=== PATIENT | male | born 1975 | race Caucasian/White ===

== ENCOUNTER 2017-01-29 10:17 | Emergency (ER) | payer MEDICAID, OTHER ==
[~2017-01-29] VITALS: Ht 175.3 cm; Wt 94.3 kg
[2017-01-29 10:20] VITALS: BP_SYST 127
[2017-01-29] MEDS ORDERED: LIDOCAINE 1% 10 MG/ML, 20 ML MDV INJ ONE (10:45)
[2017-01-29] MEDS ORDERED: BACITRACIN 1 GM OINT TP ONE (11:30)
[2017-01-29 11:43] VITALS: BP_SYST 125
== END 2017-01-29 11:43 | disposition home or self-care (01) ==
LOC: SED 10:17
DX: S51.812A Laceration without foreign body of left forearm, initial encounter (principal); I50.9 Heart failure, unspecified; R03.0 Elevated blood-pressure reading, without diagnosis of hypertension; Z95.0 Presence of cardiac pacemaker; Z88.5 Allergy status to narcotic agent; W22.8XXA Striking against or struck by other objects, initial encounter; Y93.89 Activity, other specified; Y92.89 Other specified places as the place of occurrence of the external cause; Y99.8 Other external cause status
CPT/HCPCS: 12002; 99283; J2001

== ENCOUNTER 2017-11-18 22:28 | Emergency (ER) | payer MEDICAID, OTHER ==
[~2017-11-18] VITALS: Ht 175.3 cm; Wt 102.1 kg
[2017-11-18 22:44] VITALS: BP_SYST 128
--- NOTE | 2017-11-18 22:44 | NUR ---
Pt ambulatory to bed 7 for evaluation
--- NOTE | 2017-11-18 22:50 | NUR ---
Patient to ER via triage for evaluation of shakiness, headache, vomiting, and diarrhea after taking isosorbide today. Patient is awake, alert and oriented in no acute distress, vital signs stable, respirations even and unlabored, skin warm and dry to touch. Patient able to ambulate to bed 7 without difficulty with slow, steady gait. Awaiting evaluation by ER MD, will continue to observe and assess.
--- NOTE | 2017-11-18 23:00 | NUR ---
Lights dimmed for patient comfort.
--- NOTE | 2017-11-18 23:15 | NUR ---
Dr Sweeney at bedside to evaluate patient.
[2017-11-18 23:30] VITALS: BP_SYST 139
[2017-11-18] MEDS ORDERED: DIPHENHYDRAMINE HCL 50 MG CAPSULE PO ONE (23:30)
[2017-11-18] MEDS ORDERED: fentaNYL CITRATE/PF 100 MCG/2 ML AMP IM ONE (23:30)
--- NOTE | 2017-11-18 23:50 | NUR ---
Patient given written and verbal discharge instructions and verbalizes understanding. ER MD discussed with patient the results and treatment provided. Patient in stable condition. ID arm band removed. No RX given. Patient educated on pain management and to follow up with PMD. Pain Scale 2. Opportunity for questions provided and answered. Medication side effect fact sheet provided. Patient left ER in no acute distres. No adverse reaction noted to medication. Patient/family advised not to take isosorbide until seen by MD, patient/family acknowledge understanding.
== END 2017-11-18 23:50 | disposition home or self-care (01) ==
LOC: SED 22:28
DX: T46.3X5A Adverse effect of coronary vasodilators, initial encounter (principal); I11.0 Hypertensive heart disease with heart failure; I50.9 Heart failure, unspecified; Z95.2 Presence of prosthetic heart valve; Z95.0 Presence of cardiac pacemaker; Z88.5 Allergy status to narcotic agent
CPT/HCPCS: 96372; 99284; J3010; Q0163

== ENCOUNTER 2017-12-09 22:37 | Emergency (ER) | payer OTHER ==
[~2017-12-09] VITALS: Ht 175.3 cm; Wt 98.9 kg
[2017-12-09 22:44] VITALS: BP_SYST 136
[2017-12-09] MEDS ORDERED: ONDANSETRON HCL 4 MG/2 ML VIAL IVP ONE (23:15)
[2017-12-09] MEDS ORDERED: KETOROLAC TROMETHAMINE 30 MG VIAL IVP ONE (23:15)
[2017-12-09] MEDS ORDERED: ASPIRIN 325 MG TABLET PO ONE (23:15)
[2017-12-09] MEDS ORDERED: KETOROLAC TROMETHAMINE 30 MG VIAL ONE (23:24)
[2017-12-09 23:26] LABS: BILIRUBIN,URINE NEGATIVE (NEGATIVE); BLOOD, URINE NEGATIVE (NEGATIVE); CLARITY/URINE CLEAR (CLEAR); COLOR,URINE YELLOW (YELLOW); GLUCOSE,URINE NEGATIVE (NEGATIVE); KETONES,URINE NEGATIVE (NEGATIVE); LEUKOCYTE ESTERASE ,URINE NEGATIVE (NEGATIVE); NITRITE, URINE NEGATIVE (NEGATIVE); PROTEIN URINE NEGATIVE (NEGATIVE); UROBILINOGEN,URINE 0.2 (0.2-1.0)
[2017-12-09 23:32] LABS: BASOPHILS % (AUTO) 0.6 % (0.0-2.0); EOSINOPHILS # (AUTO) 0.2 K/uL (0.0-0.4); EOSINOPHILS % (AUTO) 3.5 % (0.0-4.0); HEMATOCRIT 46.7 % (36-54); HEMOGLOBIN 14.9 g/dL (14.0-18.0); LYMPHOCYTES # (AUTO) 1.7 K/uL (1.0-5.5); LYMPHOCYTES % (AUTO) 25.9 % (20.5-51.5); MEAN CORPUSCULAR HEMOGLOBIN 30 pg (27-31); MEAN CORPUSCULAR HGB CONC 32 % (32-36); MEAN CORPUSCULAR VOLUME 94 fL (79.0-98.0); MONOCYTES # (AUTO) 0.9 K/uL (0.0-1.0); MONOCYTES % (AUTO) 12.9 % (1.7-9.3); NEUTROPHILS # (AUTO) 3.8 K/uL (1.8-7.7); NEUTROPHILS % (AUTO) 57.1 % (40.0-70.0); PLATELET COUNT (AUTO) 156 K/uL (130-430); RED BLOOD CELL COUNT(AUTO) 4.97 MIL/uL (4.2-6.2); RED CELL DISTRIBUTION WIDTH 12.2 % (9.0-15.0); WHITE BLOOD COUNT (AUTO) 6.6 K/uL (4.8-10.8)
[2017-12-09 23:50] LABS: CALCIUM 9.8 mg/dL (8.4-11.0); CREATININE 1.19 mg/dL (0.55-1.30); POTASSIUM 4.1 mmol/L (3.5-5.1)
[2017-12-09 23:55] LABS: ALBUMIN 3.3 g/dL (3.4-4.8); TOTAL BILIRUBIN 0.3 mg/dL (0.0-1.0)
[2017-12-10] MEDS ORDERED: MORPHINE 2 MG/ML INJ. SYRINGE IVP ONE (00:30)
[2017-12-10 00:42] VITALS: BP_SYST 131
== END 2017-12-10 00:42 | disposition home or self-care (01) ==
LOC: SED 22:37
DX: R10.32 Left lower quadrant pain (principal); R07.89 Other chest pain; I11.0 Hypertensive heart disease with heart failure; I50.9 Heart failure, unspecified; F17.200 Nicotine dependence, unspecified, uncomplicated; Z95.0 Presence of cardiac pacemaker; Z88.5 Allergy status to narcotic agent
CPT/HCPCS: 36415; 71045; 74176; 80053; 81003; 82550; 84484; 85025; 85610; 93005; 96374; 96375; 99285; J1885; J2270

== ENCOUNTER 2018-02-10 07:10 | Emergency (ER) | payer OTHER ==
[~2018-02-10] VITALS: Ht 175.3 cm; Wt 99.8 kg
[2018-02-10 07:15] VITALS: BP_SYST 135
--- NOTE | 2018-02-10 07:22 | NUR ---
Pt placed in bed 6
--- NOTE | 2018-02-10 07:27 | NUR ---
Patient returns to ED with continuing flank pain. States he was previously disgnosed with renal stones.
--- NOTE | 2018-02-10 07:29 | NUR ---
ER at bedside examining patient.
[2018-02-10] MEDS ORDERED: ONDANSETRON HCL 4 MG/2 ML VIAL IVP ONE (07:30)
[2018-02-10] MEDS ORDERED: KETOROLAC TROMETHAMINE 30 MG VIAL IVP ONE (07:30)
[2018-02-10] MEDS ORDERED: NACL 0.9% 1,000 ML IV ONE (07:30)
--- NOTE | 2018-02-10 07:50 | NUR ---
PATIENT AMBULATED TO CT WITH TECH.
[2018-02-10 07:52] LABS: BASOPHILS # (AUTO) 0.1 K/uL (0.0-0.2); EOSINOPHILS # (AUTO) 0.3 K/uL (0.0-0.4); LYMPHOCYTES # (AUTO) 1.6 K/uL (1.0-5.5); MONOCYTES # (AUTO) 0.6 K/uL (0.0-1.0)
[2018-02-10 07:59] LABS: BASOPHILS % (AUTO) 0.6 % (0.0-2.0); EOSINOPHILS % (AUTO) 2.8 % (0.0-4.0); HEMATOCRIT 46.9 % (36-54); HEMOGLOBIN 15.5 g/dL (14.0-18.0); LYMPHOCYTES % (AUTO) 15.2 % (20.5-51.5); MEAN CORPUSCULAR HEMOGLOBIN 31 pg (27-31); MEAN CORPUSCULAR HGB CONC 33 % (32-36); MEAN CORPUSCULAR VOLUME 93 fL (79.0-98.0); NEUTROPHILS # (AUTO) 8.2 K/uL (1.8-7.7); NEUTROPHILS % (AUTO) 75.4 % (40.0-70.0); PLATELET COUNT (AUTO) 205 K/uL (130-430); RED BLOOD CELL COUNT(AUTO) 5.03 MIL/uL (4.2-6.2); RED CELL DISTRIBUTION WIDTH 12.9 % (9.0-15.0); WHITE BLOOD COUNT (AUTO) 10.8 K/uL (4.8-10.8)
[2018-02-10 08:01] LABS: CALCIUM 10.5 mg/dL (8.4-11.0); CREATININE 1.39 mg/dL (0.55-1.30); POTASSIUM 4.5 mmol/L (3.5-5.1)
[2018-02-10 08:05] LABS: TOTAL BILIRUBIN 0.4 mg/dL (0.0-1.0)
--- NOTE | 2018-02-10 08:05 | NUR ---
PATIENT RETURNED FROM CT
[2018-02-10 08:06] LABS: ALBUMIN 3.4 g/dL (3.4-4.8)
[2018-02-10 08:35] LABS: BILIRUBIN,URINE NEGATIVE (NEGATIVE); BLOOD, URINE 3+ (NEGATIVE); CLARITY/URINE CLEAR (CLEAR); COLOR,URINE YELLOW (YELLOW); GLUCOSE,URINE NEGATIVE (NEGATIVE); KETONES,URINE NEGATIVE (NEGATIVE); LEUKOCYTE ESTERASE ,URINE NEGATIVE (NEGATIVE); NITRITE, URINE NEGATIVE (NEGATIVE); PROTEIN URINE NEGATIVE (NEGATIVE); UROBILINOGEN,URINE 0.2 (0.2-1.0)
[2018-02-10 08:51] LABS: BACTERIA,URINE FEW /HPF (None Seen); MUCUS,URINE 1+ /LPF (None Seen); RBC,URINE 50-80 /HPF (0-3); WBC,URINE 0-3 /HPF (0-3)
[2018-02-10] MEDS ORDERED: MORPHINE 2 MG/ML INJ. SYRINGE IVP ONE (09:15)
--- NOTE | 2018-02-10 10:25 | NUR ---
patient stable, denies pain at this time. is stating he wants to go home AMA. convinced patient it is safest to remain hospitalized with [facility] until kidney function returns to normal.
[2018-02-10] MEDS ORDERED: cefTRIAXone 1 GM in D5W 50 ML IV ONE (10:30)
--- NOTE | 2018-02-10 11:00 | NUR ---
patient pending tsfr to [facility] following ct and lab results.
[2018-02-10] MEDS ORDERED: cefTRIAXone 1 GM VIAL IM ONE (11:30)
[2018-02-10] MEDS ORDERED: LIDOCAINE 1%, 20 ML MDV 20 ML ONE (11:33)
--- NOTE | 2018-02-10 12:08 | NUR ---
report called to CORY العراقي RN at [facility]. notified of ETA of 1300.
[2018-02-10 12:25] VITALS: BP_SYST 128
--- NOTE | 2018-02-10 12:26 | NUR ---
Patient transferred to [facility] ED. Is being transferred due to insurance request. Receiving facility has accepting physician, koker, and available space. ER physician Dr Real has signed transfer form. Patient or responsible green party has agreed to transfer and signed form. Patient belongings inventoried and sent with patient. Copy of nursing notes, lab reports, EKG, Physicians Orders and X-rays to be sent with patient. Report called to LIYA Bright at receiving facility. Receiving physician is Dr Han. [facility] ambulance service for transfer. Patient has departed ED with ambulance.
== END 2018-02-10 12:26 | disposition short-term general hospital (02) ==
LOC: SED 07:10
DX: N20.0 Calculus of kidney (principal); N12 Tubulo-interstitial nephritis, not specified as acute or chronic; I11.0 Hypertensive heart disease with heart failure; I50.9 Heart failure, unspecified; Z95.0 Presence of cardiac pacemaker; Z88.5 Allergy status to narcotic agent
CPT/HCPCS: 36415; 74176; 80053; 81000; 85025; 96361; 96372; 96374; 96375; 99285; J0696; J1885; J2001; J2270; J2405; J7030

== ENCOUNTER 2019-02-16 08:00 | Emergency (ER) | payer OTHER ==
[~2019-02-16] VITALS: Ht 175.3 cm; Wt 99.8 kg
[2019-02-16 08:00] VITALS: BP_SYST 117
--- NOTE | 2019-02-16 08:00 | NUR ---
BROUGHT BACK TO BED #6 AND TRIAGED, REPORT GIVEN TO ASHLEY
--- NOTE | 2019-02-16 08:05 | NUR ---
Patient presented to ER C/O cough, runny nose, headache. Patient A&Ox4, afebrile, ambulatory to ER, nasal congestion, skin pink and warm, pain 3/10, denies N/V/D. Patient states he has heasdache, runny nose and cough x7 days, last night he had SOB and unable to sleep. Patient states he has HX CHF & pacemaker implant.
--- NOTE | 2019-02-16 08:21 | NUR ---
Radiology at bedside for portable x-ray.
[2019-02-16] MEDS ORDERED: cefTRIAXone 1 GM VIAL IM ONE (08:30)
[2019-02-16 08:57] VITALS: BP_SYST 117
--- NOTE | 2019-02-16 08:57 | NUR ---
Patient given written and verbal discharge instructions and verbalizes understanding. ER MD discussed with patient the results and treatment provided. Patient in stable condition. ID arm band removed. Rx of Prometh & Augmentin given. Patient educated on pain management and to follow up with PMD. Pain Scale 2/10 tolerable for patient. Opportunity for questions provided and answered.
== END 2019-02-16 08:57 | disposition home or self-care (01) ==
LOC: SED 08:00
DX: J20.9 Acute bronchitis, unspecified (principal); I11.0 Hypertensive heart disease with heart failure; Z95.0 Presence of cardiac pacemaker; Z88.5 Allergy status to narcotic agent
CPT/HCPCS: 71045; 96372; 99283; J0696

== ENCOUNTER 2019-06-22 03:12 | Emergency (ER) | payer MEDICAID, OTHER ==
[~2019-06-22] VITALS: Ht 175.3 cm; Wt 99.8 kg
[2019-06-22 03:20] VITALS: BP_SYST 119
[2019-06-22] MEDS ORDERED: ONDANSETRON HCL 4 MG/2 ML VIAL IM ONE (04:30)
[2019-06-22] MEDS ORDERED: MORPHINE 4 MG/ML INJ. SYRINGE IM ONE (04:30)
[2019-06-22] MEDS ORDERED: ceFAZolin SODIUM 1 GM in D5W 50 ML IV ONE (05:00)
[2019-06-22 05:38] LABS: BASOPHILS # (AUTO) 0.1 K/uL (0.0-0.2); BASOPHILS % (AUTO) 0.8 % (0.0-2.0); EOSINOPHILS # (AUTO) 0.2 K/uL (0.0-0.4); EOSINOPHILS % (AUTO) 1.8 % (0.0-4.0); HEMOGLOBIN 14.2 g/dL (14.0-18.0); LYMPHOCYTES # (AUTO) 1.4 K/uL (1.0-5.5); LYMPHOCYTES % (AUTO) 16.9 % (20.5-51.5); MEAN CORPUSCULAR HEMOGLOBIN 31 pg (27-31); MEAN CORPUSCULAR HGB CONC 33 % (32-36); MEAN CORPUSCULAR VOLUME 94 fL (79.0-98.0); MONOCYTES # (AUTO) 0.7 K/uL (0.0-1.0); MONOCYTES % (AUTO) 8.2 % (1.7-9.3); NEUTROPHILS # (AUTO) 6.2 K/uL (1.8-7.7); NEUTROPHILS % (AUTO) 72.3 % (40.0-70.0); PLATELET COUNT (AUTO) 170 K/uL (130-430); RED BLOOD CELL COUNT(AUTO) 4.56 MIL/uL (4.2-6.2); WHITE BLOOD COUNT (AUTO) 8.5 K/uL (4.8-10.8)
[2019-06-22] MEDS ORDERED: ceFAZolin SODIUM 1 GM VIAL ONE (05:48)
[2019-06-22 05:51] LABS: CALCIUM 10.4 mg/dL (8.4-11.0); CREATININE 1.25 mg/dL (0.55-1.30); POTASSIUM 3.7 mmol/L (3.5-5.1)
[2019-06-22 06:02] LABS: TOTAL BILIRUBIN 0.4 mg/dL (0.0-1.0)
[2019-06-22 07:37] VITALS: BP_SYST 139
== END 2019-06-22 07:37 | disposition home or self-care (01) ==
LOC: SED 03:12
DX: R68.84 Jaw pain (principal); M25.572 Pain in left ankle and joints of left foot; I11.0 Hypertensive heart disease with heart failure; I50.9 Heart failure, unspecified; Z88.5 Allergy status to narcotic agent
CPT/HCPCS: 36415; 70486; 73610; 73630; 80053; 83605; 85025; 86886; 86900; 86901; 87040; 96365; 96372; 99285; J0690; J2270; J2405

== ENCOUNTER 2019-07-26 05:52 | Emergency (ER) | payer MEDICAID, OTHER ==
[~2019-07-26] VITALS: Ht 175.3 cm; Wt 90.7 kg
--- NOTE | 2019-07-26 05:57 | NUR ---
Patient to ER bed 8 to gown for evaluation. Side rails up. Report given to Papi NICKERSON.
[2019-07-26 06:00] VITALS: BP_SYST 132
--- NOTE | 2019-07-26 06:05 | NUR ---
ER at bedside examining patient.
[2019-07-26] MEDS ORDERED: MORPHINE 4 MG/ML INJ. SYRINGE IVP ONE ×2 (06:15→08:45)
[2019-07-26] MEDS ORDERED: ONDANSETRON HCL 4 MG/2 ML VIAL IVP ONE ×2 (06:15→08:45)
[2019-07-26] MEDS ORDERED: NACL 0.9% 1,000 ML IV ONE (06:15)
[2019-07-26 06:28] LABS: BASOPHILS # (AUTO) 0.1 K/uL (0.0-0.2); BASOPHILS % (AUTO) 0.3 % (0.0-2.0); HEMATOCRIT 40.5 % (36-54); HEMOGLOBIN 13.4 g/dL (14.0-18.0); LYMPHOCYTES # (AUTO) 1.2 K/uL (1.0-5.5); LYMPHOCYTES % (AUTO) 6.3 % (20.5-51.5); MEAN CORPUSCULAR HEMOGLOBIN 31 pg (27-31); MEAN CORPUSCULAR HGB CONC 33 % (32-36); MEAN CORPUSCULAR VOLUME 93 fL (79.0-98.0); MONOCYTES # (AUTO) 1.4 K/uL (0.0-1.0); MONOCYTES % (AUTO) 7.3 % (1.7-9.3); NEUTROPHILS # (AUTO) 16.4 K/uL (1.8-7.7); NEUTROPHILS % (AUTO) 86.1 % (40.0-70.0); PLATELET COUNT (AUTO) 203 K/uL (130-430); RED BLOOD CELL COUNT(AUTO) 4.36 MIL/uL (4.2-6.2); RED CELL DISTRIBUTION WIDTH 13.2 % (9.0-15.0); WHITE BLOOD COUNT (AUTO) 19.1 K/uL (4.8-10.8)
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
[2019-07-26 06:36] LABS: CALCIUM 10.5 mg/dL (8.4-11.0); CREATININE 1.32 mg/dL (0.55-1.30); POTASSIUM 3.5 mmol/L (3.5-5.1)
[2019-07-26 06:47] LABS: ALBUMIN 3.2 g/dL (3.4-4.8); TOTAL BILIRUBIN 0.8 mg/dL (0.0-1.0)
[2019-07-26] MEDS ORDERED: IOHEXOL 100 ML IV ONE (07:09)
--- NOTE | 2019-07-26 07:58 | NUR ---
Spoke with pt Cris who left contact number for updates on status ([phone])
--- NOTE | 2019-07-26 10:17 | NUR ---
Report given to Jose at [facility] pickup ETA [id number]
--- NOTE | 2019-07-26 12:25 | NUR ---
Patient to be transferred to [facility]. Is being transferred due to higher level of care. Receiving facility has accepting physician and available space. ER physician has signed transfer form. Patient or responsible constitution party has agreed to transfer and signed form. Patient belongings inventoried and will be sent with patient. Copy of nursing notes, lab reports, EKG, Physicians Orders and X-rays to be sent with patient. Report called to Jose at receiving facility. Receiving physician is Dr Tee. [place] ambulance service has been called for transfer.
[2019-07-26 12:27] VITALS: BP_SYST 158
== END 2019-07-26 12:27 | disposition short-term general hospital (02) ==
LOC: SED 05:52
DX: K85.80 Other acute pancreatitis without necrosis or infection (principal); R10.32 Left lower quadrant pain; R11.10 Vomiting, unspecified; I42.9 Cardiomyopathy, unspecified; I11.0 Hypertensive heart disease with heart failure; I50.9 Heart failure, unspecified; Z95.0 Presence of cardiac pacemaker; Z88.5 Allergy status to narcotic agent
CPT/HCPCS: 36415; 74177; 80053; 83690; 85025; 96361; 96374; 96375; 96376; 99285; J2270; J2405; J7030; Q9967

== ENCOUNTER 2019-10-29 01:45 | Inpatient (IN) | payer OTHER ==
[~2019-10-29] VITALS: Ht 175.3 cm; Wt 99.8 kg
[2019-10-29 01:55] VITALS: BP_SYST 142
[2019-10-29] MEDS ORDERED: NACL 0.9% 1,000 ML IV ONE (02:12)
[2019-10-29 02:28] LABS: BILIRUBIN,URINE NEGATIVE (NEGATIVE); BLOOD, URINE NEGATIVE (NEGATIVE); CLARITY/URINE CLEAR (CLEAR); COLOR,URINE YELLOW (YELLOW); GLUCOSE,URINE NEGATIVE (NEGATIVE); KETONES,URINE NEGATIVE (NEGATIVE); LEUKOCYTE ESTERASE ,URINE NEGATIVE (NEGATIVE); NITRITE, URINE NEGATIVE (NEGATIVE); PROTEIN URINE NEGATIVE (NEGATIVE); UROBILINOGEN,URINE 0.2 (0.2-1.0)
[2019-10-29] MEDS ORDERED: ONDANSETRON HCL 4 MG/2 ML VIAL IVP ONE (02:30)
[2019-10-29] MEDS ORDERED: MORPHINE 4 MG/ML INJ. SYRINGE IVP ONE (02:30)
[2019-10-29 03:03] LABS: BASOPHILS # (AUTO) 0.1 K/uL (0.0-0.2); EOSINOPHILS # (AUTO) 0.2 K/uL (0.0-0.4); EOSINOPHILS % (AUTO) 2.9 % (0.0-4.0); HEMATOCRIT 43.3 % (36-54); HEMOGLOBIN 14.4 g/dL (14.0-18.0); LYMPHOCYTES # (AUTO) 2.1 K/uL (1.0-5.5); LYMPHOCYTES % (AUTO) 29.8 % (20.5-51.5); MEAN CORPUSCULAR HEMOGLOBIN 32 pg (27-31); MEAN CORPUSCULAR HGB CONC 33 % (32-36); MEAN CORPUSCULAR VOLUME 95 fL (79.0-98.0); MONOCYTES # (AUTO) 0.7 K/uL (0.0-1.0); MONOCYTES % (AUTO) 10.1 % (1.7-9.3); NEUTROPHILS % (AUTO) 56.2 % (40.0-70.0); PLATELET COUNT (AUTO) 158 K/uL (130-430); RED BLOOD CELL COUNT(AUTO) 4.55 MIL/uL (4.2-6.2); RED CELL DISTRIBUTION WIDTH 14.2 % (9.0-15.0); WHITE BLOOD COUNT (AUTO) 7.2 K/uL (4.8-10.8)
[2019-10-29 03:13] LABS: CALCIUM 11.1 mg/dL (8.4-11.0); CREATININE 1.47 mg/dL (0.55-1.30); POTASSIUM 3.8 mmol/L (3.5-5.1)
[2019-10-29 03:18] LABS: ALBUMIN 3.3 g/dL (3.4-4.8); TOTAL BILIRUBIN 0.5 mg/dL (0.0-1.0)
[2019-10-29] MEDS ORDERED: fentaNYL CITRATE/PF 100 MCG/2 ML AMP IVP ONE (03:45)
[2019-10-29] MEDS ORDERED: LORazepam 2 MG/ML VIAL IVP ONE (05:30)
[2019-10-29] MEDS ORDERED: KETAMINE 30 MG/3 ML SYRINGE IVP ONE (05:30)
[2019-10-29] MEDS ORDERED: D5NS 1,000 ML IV SCH (05:52)
[2019-10-29] MEDS ORDERED: MORPHINE 2 MG/ML INJ. SYRINGE IVP PRN (06:00)
[2019-10-29 06:50] VITALS: BP_SYST 137
[2019-10-29] MEDS ORDERED: POTASSIUM CHLORIDE 20 MEQ TAB.PRT.SR PO PRN (07:15)
[2019-10-29] MEDS ORDERED: ONDANSETRON HCL 4 MG/2 ML VIAL IVP PRN (07:15)
[2019-10-29] MEDS ORDERED: KETOROLAC TROMETHAMINE 15 MG VIAL IVP PRN (07:15)
[2019-10-29] MEDS ORDERED: MUPIROCIN 2% TOPICAL OINTMENT 22 GM NS PRN (07:15)
[2019-10-29] MEDS ORDERED: DOCUSATE SODIUM 100 MG CAPSULE PO PRN (07:15)
[2019-10-29] MEDS ORDERED: LORazepam 2 MG/ML VIAL IVP PRN (07:15)
[2019-10-29] MEDS ORDERED: ZOLPIDEM TARTRATE 5 MG TABLET PO PRN (07:15)
[2019-10-29] MEDS ORDERED: ACETAMINOPHEN 325 MG TABLET PO PRN (07:15)
[2019-10-29] MEDS ORDERED: MAGNESIUM SULFATE 50 ML IV PRN (07:15)
[2019-10-29] MEDS: MORPHINE 2 MG/ML INJ. SYRINGE IVP PRN ×2 (08:07→12:08)
[2019-10-29 08:14] VITALS: BP_SYST 138
[2019-10-29] MEDS ORDERED: FUROSEMIDE 20 MG TABLET PO SCH (09:00)
[2019-10-29] MEDS ORDERED: MORPHINE 2 MG/ML INJ. SYRINGE IVP ONE ×2 (09:45)
[2019-10-29 09:50] LABS: BARBITURATE, URINE NEGATIVE (NEG <=200); BENZODIAZEPINE, URINE NEGATIVE (NEG <=150); CANNABINOID, URINE NEGATIVE (NEG <=50); COCAINE, URINE NEGATIVE (NEG <=150); METHAMPHETAMINES SCREEN,URINE NEGATIVE (NEG <=500); OPIATE, URINE NEGATIVE (NEG <=100); PHENCYCLIDINE SCREEN,URINE NEGATIVE (NEG <=25); UR TRICYCLIC ANTIDEPRESSANTS NEGATIVE (NEG <=300); URINE AMPHETAMINE NEGATIVE (NEG <=500); URINE METHADONE NEGATIVE (NEG <=200); URINE OXYCODONE SCREEN NEGATIVE (NEG <=100); URINE PROPOXYPHENE SCREEN NEGATIVE (NEG <=300)
[2019-10-29 10:52] VITALS: BP_SYST 138
[2019-10-29 12:00] VITALS: BP_SYST 125
== END 2019-10-29 13:50 | disposition left against medical advice (07) | DRG 282 ==
LOC: SED 01:45 → SMU 05:52
PROVIDERS: ADMIT General Practice; ATTEND General Practice
DX: K85.20 Alcohol induced acute pancreatitis without necrosis or infection (principal); N17.0 Acute kidney failure with tubular necrosis; I50.9 Heart failure, unspecified; I42.9 Cardiomyopathy, unspecified; F15.10 Other stimulant abuse, uncomplicated; R74.0 Nonspecific elevation of levels of transaminase and lactic acid dehydrogenase [LDH]; I11.0 Hypertensive heart disease with heart failure; Z53.29 Procedure and treatment not carried out because of patient's decision for other reasons; Z88.5 Allergy status to narcotic agent; Z95.0 Presence of cardiac pacemaker
CPT/HCPCS: 36415; 76700-TC; 80053; 80307; 81003; 83036; 83690-TC; 85025; 93005; 96361; 96374; 96375; 99285; G0482; J2060; J2270; J2405; J3010; J7030; J7042

== ENCOUNTER 2020-01-23 07:44 | Emergency (ER) | payer OTHER, SELFPAY ==
[~2020-01-23] VITALS: Ht 175.3 cm; Wt 102.1 kg
[2020-01-23 07:44] VITALS: BP_SYST 110
--- NOTE | 2020-01-23 07:44 | NUR ---
BROUGHT BACK TO BED #7 AND TRIAGED, REPORT GIVEN TO GURJIT
--- NOTE | 2020-01-23 07:45 | NUR ---
DR SHRESTHA IN TO ASSESS
[2020-01-23] MEDS ORDERED: ONDANSETRON HCL 4 MG/2 ML VIAL IVP ONE (08:00)
[2020-01-23] MEDS ORDERED: FUROSEMIDE 40 MG/4 ML VIAL IVP ONE (08:00)
--- NOTE | 2020-01-23 08:00 | NUR ---
SEVERAL EPISODES OF EMESIS. ALERT, CALM, RESP UNLABORED, SKIN WARM AND DRY. NO DISTRESS, C/O COUGH AND REQUESTING CXR
--- NOTE | 2020-01-23 08:21 | NUR ---
LABS AND CXR COMPLETED, CALM, ALERT, RESP UNLABORED
[2020-01-23] MEDS ORDERED: MORPHINE 2 MG/ML INJ. SYRINGE IVP ONE (08:30)
[2020-01-23 08:36] LABS: BASOPHILS # (AUTO) 0.1 K/uL (0.0-0.2); EOSINOPHILS # (AUTO) 0.4 K/uL (0.0-0.4); EOSINOPHILS % (AUTO) 4.7 % (0.0-4.0); HEMATOCRIT 47.6 % (36-54); LYMPHOCYTES # (AUTO) 1.7 K/uL (1.0-5.5); LYMPHOCYTES % (AUTO) 20.2 % (20.5-51.5); MEAN CORPUSCULAR HEMOGLOBIN 32 pg (27-31); MEAN CORPUSCULAR HGB CONC 34 % (32-36); MEAN CORPUSCULAR VOLUME 96 fL (79.0-98.0); MONOCYTES # (AUTO) 0.7 K/uL (0.0-1.0); MONOCYTES % (AUTO) 8.9 % (1.7-9.3); NEUTROPHILS # (AUTO) 5.4 K/uL (1.8-7.7); NEUTROPHILS % (AUTO) 65.2 % (40.0-70.0); PLATELET COUNT (AUTO) 167 K/uL (130-430); RED BLOOD CELL COUNT(AUTO) 4.95 MIL/uL (4.2-6.2); RED CELL DISTRIBUTION WIDTH 14.3 % (9.0-15.0); WHITE BLOOD COUNT (AUTO) 8.3 K/uL (4.8-10.8)
[2020-01-23 08:56] LABS: PROTHROMBIN TIME 10.5 SECS (9.5-12.5)
[2020-01-23 09:04] LABS: FIBRINOGEN 308 mg/dL (200-400)
[2020-01-23 09:06] LABS: ANION GAP 6 (5-15); CALCIUM 10.8 mg/dL (8.4-11.0); CHLORIDE 103 mmol/L (98-107); CREATININE 1.22 mg/dL (0.55-1.30); GLUCOSE 120 mg/dL (70-99); POTASSIUM 4.8 mmol/L (3.5-5.1); SODIUM SERUM 137 mmol/L (136-145); UREA NITROGEN, BLOOD 20 mg/dL (8-21)
[2020-01-23 09:07] LABS: GFR AFRICAN AMERICAN 83 mL/min (>90)
[2020-01-23 09:10] LABS: ALANINE AMINOTRANSFERASE 137 U/L (12-78); ALBUMIN 3.7 g/dL (3.4-4.8); ASPARTATE AMINOTRANSFERASE 66 U/L (10-37); LACTATE DEHYDROGENASE 166 U/L (85-227); TOTAL BILIRUBIN 0.7 mg/dL (0.0-1.0)
[2020-01-23 09:23] LABS: C-REACTIVE PROTEIN QUANT < 0.2 mg/dL (0-0.5)
[2020-01-23] MEDS ORDERED: PROMETHAZINE-DM 6.25 MG-15 MG/5 ML UDC PO ONE (10:00)
--- NOTE | 2020-01-23 10:04 | NUR ---
ALERT, CALM, RESP UNLABORED, SKIN WARM AND DRY. DENIES CP/SOB
[2020-01-23 10:17] VITALS: BP_SYST 124
--- NOTE | 2020-01-23 10:26 | NUR ---
Patient given written and verbal discharge instructions and verbalizes understanding. ER MD discussed with patient the results and treatment provided. Patient in stable condition. ID arm band removed. IV catheter removed intact and dressing applied, no active bleeding. Rx of PHENERGAN given. Patient educated on pain management and to follow up with PMD. Pain Scale 0/10 Opportunity for questions provided and answered. Medication side effect fact sheet provided.
[2020-01-23 10:55] LABS: BILIRUBIN,URINE NEGATIVE (NEGATIVE); BLOOD, URINE NEGATIVE (NEGATIVE); CLARITY/URINE CLEAR (CLEAR); COLOR,URINE YELLOW (YELLOW); GLUCOSE,URINE NEGATIVE (NEGATIVE); KETONES,URINE NEGATIVE (NEGATIVE); LEUKOCYTE ESTERASE ,URINE NEGATIVE (NEGATIVE); NITRITE, URINE NEGATIVE (NEGATIVE); PH,URINE 6.5 (5.0-8.0); PROTEIN URINE NEGATIVE (NEGATIVE); UROBILINOGEN,URINE 0.2 (0.2-1.0)
== END 2020-01-23 10:26 | disposition home or self-care (01) ==
LOC: SED 07:44
DX: J20.9 Acute bronchitis, unspecified (principal); R11.10 Vomiting, unspecified; I11.0 Hypertensive heart disease with heart failure; I50.9 Heart failure, unspecified; Z95.0 Presence of cardiac pacemaker; Z88.5 Allergy status to narcotic agent; Z20.828 Contact with and (suspected) exposure to other viral communicable diseases
CPT/HCPCS: 36415; 71045; 80053; 81003; 82550; 82728; 83605; 83615; 83880; 84484; 85025; 85379; 85384; 85610; 85730; 86140; 87040; 87086; 87426; 93005; 96374; 96375; 99285; J1940; J2270; J2405

== ENCOUNTER 2020-02-18 22:02 | Emergency (ER) | payer OTHER, SELFPAY ==
[~2020-02-18] VITALS: Ht 175.3 cm; Wt 102.1 kg
[2020-02-18 22:14] VITALS: BP_SYST 101
--- NOTE | 2020-02-18 23:50 | NUR ---
Patient to ER bed HALLWAY 2 to [facility] for evaluation. Side rails up. Report given to KAMALA.
--- NOTE | 2020-02-18 23:52 | NUR ---
PT AAO AND AMBULATORY C/O ABDOMINAL PAIN THAT IS BURNING FOR THE PAST 24 HOURS. PT REPORTS WORSENING PAIN AND 10/10 LEVEL OF DISCOMFORT. PT HAS HISTORY OF PANCREATITIS AND HE REPORTS THAT IT FEELS LIKE A FLARE UP.
--- NOTE | 2020-02-18 23:55 | NUR ---
BLOOD DRAWN PER LAB
--- NOTE | 2020-02-18 23:55 | NUR ---
ER Dr. SIMMS at bedside examining patient.
[2020-02-19] MEDS ORDERED: MORPHINE 4 MG/ML INJ. SYRINGE IVP ONE ×2 (00:15→01:30)
[2020-02-19] MEDS ORDERED: MORPHINE 4 MG/ML INJ. SYRINGE ONE (00:17)
[2020-02-19 00:30] LABS: BASOPHILS # (AUTO) 0.1 K/uL (0.0-0.2); BASOPHILS % (AUTO) 0.7 % (0.0-2.0); EOSINOPHILS # (AUTO) 0.4 K/uL (0.0-0.4); EOSINOPHILS % (AUTO) 5.6 % (0.0-4.0); HEMOGLOBIN 14.3 g/dL (14.0-18.0); LYMPHOCYTES # (AUTO) 2.4 K/uL (1.0-5.5); LYMPHOCYTES % (AUTO) 32.2 % (20.5-51.5); MEAN CORPUSCULAR HEMOGLOBIN 32 pg (27-31); MEAN CORPUSCULAR HGB CONC 33 % (32-36); MEAN CORPUSCULAR VOLUME 96 fL (79.0-98.0); MONOCYTES # (AUTO) 0.9 K/uL (0.0-1.0); MONOCYTES % (AUTO) 12.1 % (1.7-9.3); NEUTROPHILS # (AUTO) 3.7 K/uL (1.8-7.7); NEUTROPHILS % (AUTO) 49.4 % (40.0-70.0); PLATELET COUNT (AUTO) 170 K/uL (130-430); RED BLOOD CELL COUNT(AUTO) 4.48 MIL/uL (4.2-6.2); RED CELL DISTRIBUTION WIDTH 13.6 % (9.0-15.0); WHITE BLOOD COUNT (AUTO) 7.5 K/uL (4.8-10.8)
[2020-02-19 00:50] LABS: CALCIUM 10.2 mg/dL (8.4-11.0); CREATININE 1.31 mg/dL (0.55-1.30); POTASSIUM 3.9 mmol/L (3.5-5.1)
[2020-02-19 01:02] LABS: ALBUMIN 3.5 g/dL (3.4-4.8); TOTAL BILIRUBIN 0.6 mg/dL (0.0-1.0)
--- NOTE | 2020-02-19 01:40 | NUR ---
Patient given written and verbal discharge instructions and verbalizes understanding. DR. DEMI RAY MD discussed with patient the results and treatment provided. Patient in stable condition. ID arm band removed. IV catheter removed intact and dressing applied, no active bleeding. Patient educated on pain management and to follow up with PMD. Pain Scale 2/10. Opportunity for questions provided and answered.
[2020-02-19 01:41] VITALS: BP_SYST 101
== END 2020-02-19 01:40 | disposition home or self-care (01) ==
LOC: SED 22:02
DX: R10.13 Epigastric pain (principal); I11.0 Hypertensive heart disease with heart failure; I50.9 Heart failure, unspecified; Z88.0 Allergy status to penicillin; Z95.0 Presence of cardiac pacemaker
CPT/HCPCS: 36415; 80053; 81002; 83690; 85025; 93005; 96374; 96375; 99284; J2270

== ENCOUNTER 2020-03-24 19:23 | Inpatient (IN) | payer OTHER, SELFPAY ==
[~2020-03-24] VITALS: Ht 175.3 cm; Wt 106.2 kg
[2020-03-24 19:23] VITALS: BP_SYST 149
[2020-03-24] MEDS ORDERED: ASPIRIN 81 MG TAB.CHEW PO ONE (19:45)
[2020-03-24 20:10] LABS: BASOPHILS % (AUTO) 0.1 % (0.0-2.0); EOSINOPHILS # (AUTO) 0.1 K/uL (0.0-0.4); EOSINOPHILS % (AUTO) 1.3 % (0.0-4.0); HEMATOCRIT 43.3 % (36-54); HEMOGLOBIN 14.7 g/dL (14.0-18.0); LYMPHOCYTES # (AUTO) 1.7 K/uL (1.0-5.5); LYMPHOCYTES % (AUTO) 23.9 % (20.5-51.5); MEAN CORPUSCULAR HEMOGLOBIN 32 pg (27-31); MEAN CORPUSCULAR HGB CONC 34 % (32-36); MEAN CORPUSCULAR VOLUME 96 fL (79.0-98.0); MONOCYTES # (AUTO) 0.9 K/uL (0.0-1.0); MONOCYTES % (AUTO) 12.5 % (1.7-9.3); NEUTROPHILS # (AUTO) 4.3 K/uL (1.8-7.7); NEUTROPHILS % (AUTO) 62.2 % (40.0-70.0); PLATELET COUNT (AUTO) 157 K/uL (130-430); RED BLOOD CELL COUNT(AUTO) 4.53 MIL/uL (4.2-6.2); RED CELL DISTRIBUTION WIDTH 13.9 % (9.0-15.0); WHITE BLOOD COUNT (AUTO) 6.9 K/uL (4.8-10.8)
[2020-03-24] MEDS ORDERED: NITROGLYCERIN 0.4 MG TAB.SUBL SL ONE ×2 (20:15→20:19)
[2020-03-24 20:49] LABS: ANION GAP 10 (5-15); CHLORIDE 100 mmol/L (98-107); CREATININE 1.19 mg/dL (0.55-1.30); GLUCOSE 106 mg/dL (70-99); SODIUM SERUM 135 mmol/L (136-145); UREA NITROGEN, BLOOD 22 mg/dL (8-21)
[2020-03-24 20:50] LABS: GFR AFRICAN AMERICAN 85 mL/min (>90)
[2020-03-24 21:09] LABS: BILIRUBIN,DIRECT 0.3 mg/dL (0.0-0.3); TOTAL BILIRUBIN 0.8 mg/dL (0.0-1.0)
[2020-03-24 21:10] LABS: ALANINE AMINOTRANSFERASE 173 U/L (12-78); ALBUMIN 3.8 g/dL (3.4-4.8); ASPARTATE AMINOTRANSFERASE 83 U/L (10-37); LIPASE 420 U/L (73-393)
[2020-03-24] MEDS ORDERED: MORPHINE 4 MG/ML INJ. SYRINGE ONE (21:54)
[2020-03-24] MEDS ORDERED: MORPHINE 4 MG/ML INJ. SYRINGE IVP ONE (22:00)
[2020-03-24] MEDS ORDERED: ACETAMINOPHEN 325 MG TABLET PO PRN (23:15)
[2020-03-24] MEDS ORDERED: LORazepam 2 MG/ML VIAL IVP PRN (23:15)
[2020-03-24] MEDS ORDERED: ONDANSETRON HCL 4 MG/2 ML VIAL IVP PRN (23:15)
[2020-03-25 00:30] VITALS: BP_SYST 112
[2020-03-25] MEDS ORDERED: MORPHINE 2 MG/ML INJ. SYRINGE ONE ×5 (03:23→20:50)
[2020-03-25] MEDS: MORPHINE 2 MG/ML INJ. SYRINGE IVP PRN ×4 (03:38→21:34)
[2020-03-25] MEDS ORDERED: NORMAL SALINE 5 ML DISP.SYRIN IVF SCH (06:00)
[2020-03-25] MEDS: NORMAL SALINE 5 ML DISP.SYRIN IVF SCH ×3 (06:32→21:35)
[2020-03-25 08:00] VITALS: BP_SYST 129
[2020-03-25 08:19] LABS: BASOPHILS % (AUTO) 0.7 % (0.0-2.0); EOSINOPHILS # (AUTO) 0.1 K/uL (0.0-0.4); EOSINOPHILS % (AUTO) 2.7 % (0.0-4.0); HEMATOCRIT 42.5 % (36-54); LYMPHOCYTES # (AUTO) 1.4 K/uL (1.0-5.5); LYMPHOCYTES % (AUTO) 30.7 % (20.5-51.5); MEAN CORPUSCULAR HEMOGLOBIN 32 pg (27-31); MEAN CORPUSCULAR HGB CONC 33 % (32-36); MEAN CORPUSCULAR VOLUME 96 fL (79.0-98.0); MONOCYTES # (AUTO) 0.7 K/uL (0.0-1.0); MONOCYTES % (AUTO) 15.6 % (1.7-9.3); NEUTROPHILS # (AUTO) 2.3 K/uL (1.8-7.7); NEUTROPHILS % (AUTO) 50.3 % (40.0-70.0); PLATELET COUNT (AUTO) 130 K/uL (130-430); RED BLOOD CELL COUNT(AUTO) 4.42 MIL/uL (4.2-6.2); RED CELL DISTRIBUTION WIDTH 13.6 % (9.0-15.0); WHITE BLOOD COUNT (AUTO) 4.5 K/uL (4.8-10.8)
[2020-03-25 08:21] LABS: ALANINE AMINOTRANSFERASE 163 U/L (12-78); ALBUMIN 3.4 g/dL (3.4-4.8); ANION GAP 8 (5-15); ASPARTATE AMINOTRANSFERASE 79 U/L (10-37); CALCIUM 10.6 mg/dL (8.4-11.0); CHLORIDE 102 mmol/L (98-107); CREATININE 1.04 mg/dL (0.55-1.30); GLUCOSE 101 mg/dL (70-99); PHOSPHORUS 2.6 mg/dL (2.7-4.5); POTASSIUM 3.8 mmol/L (3.5-5.1); SODIUM SERUM 136 mmol/L (136-145); TOTAL BILIRUBIN 0.7 mg/dL (0.0-1.0); UREA NITROGEN, BLOOD 20 mg/dL (8-21)
[2020-03-25 08:24] LABS: GFR AFRICAN AMERICAN 100 mL/min (>90)
[2020-03-25] MEDS: NITROGLYCERIN 1 INCH (GM) OINT. TP SCH ×2 (09:00→21:35)
[2020-03-25] MEDS ORDERED: FUROSEMIDE 40 MG TABLET PO ONE (11:15)
[2020-03-25] MEDS ORDERED: SPIRONOLACTONE 25 MG TABLET (ALDACTONE) PO ONE (11:15)
[2020-03-25] MEDS ORDERED: ASPIRIN 81 MG TAB.CHEW PO ONE (11:15)
[2020-03-25] MEDS ORDERED: LOSARTAN POTASSIUM 50 MG TABLET (COZAAR) PO ONE (11:15)
[2020-03-25] MEDS ORDERED: ASA81 PO (11:26)
[2020-03-25] MEDS ORDERED: SPIR25TA6 PO (11:26)
[2020-03-25] MEDS ORDERED: POTA20TA83 PO (11:26)
[2020-03-25] MEDS ORDERED: BISOPROLOL PO (11:26)
[2020-03-25] MEDS ORDERED: FURO-149 PO (11:26)
[2020-03-25] MEDS ORDERED: OMEP20CA15 PO (11:26)
[2020-03-25] MEDS ORDERED: LOSA50TA3 PO (11:26)
[2020-03-25 12:00] VITALS: BP_SYST 128
[2020-03-25] MEDS ORDERED: POTASSIUM CHLORIDE 10 MEQ TAB.PRT.SR PO ONE (12:45)
[2020-03-25] MEDS: ATENOLOL 50 MG TABLET (TENORMIN) PO SCH ×2 (13:35→21:34)
[2020-03-25] MEDS: PANTOPRAZOLE SODIUM 40 MG TAB PO SCH (13:35)
[2020-03-25 16:10] VITALS: BP_SYST 122
[2020-03-25 21:35] VITALS: BP_SYST 122
[2020-03-25] MEDS: FUROSEMIDE 40 MG TABLET PO SCH (21:35)
[2020-03-26 00:55] VITALS: BP_SYST 125
[2020-03-26] MEDS ORDERED: MORPHINE 2 MG/ML INJ. SYRINGE ONE ×3 (01:34→12:21)
[2020-03-26] MEDS: MORPHINE 2 MG/ML INJ. SYRINGE IVP PRN ×2 (01:34→07:00)
[2020-03-26] MEDS: NORMAL SALINE 5 ML DISP.SYRIN IVF SCH ×2 (07:00→14:00)
[2020-03-26 07:50] LABS: BASOPHILS % (AUTO) 1.1 % (0.0-2.0); EOSINOPHILS # (AUTO) 0.1 K/uL (0.0-0.4); EOSINOPHILS % (AUTO) 3.4 % (0.0-4.0); HEMATOCRIT 40.4 % (36-54); HEMOGLOBIN 13.6 g/dL (14.0-18.0); LYMPHOCYTES # (AUTO) 0.9 K/uL (1.0-5.5); LYMPHOCYTES % (AUTO) 23.8 % (20.5-51.5); MEAN CORPUSCULAR HEMOGLOBIN 32 pg (27-31); MEAN CORPUSCULAR HGB CONC 34 % (32-36); MEAN CORPUSCULAR VOLUME 96 fL (79.0-98.0); MONOCYTES # (AUTO) 0.7 K/uL (0.0-1.0); MONOCYTES % (AUTO) 18.4 % (1.7-9.3); NEUTROPHILS # (AUTO) 1.9 K/uL (1.8-7.7); NEUTROPHILS % (AUTO) 53.3 % (40.0-70.0); PLATELET COUNT (AUTO) 135 K/uL (130-430); RED BLOOD CELL COUNT(AUTO) 4.21 MIL/uL (4.2-6.2); RED CELL DISTRIBUTION WIDTH 13.8 % (9.0-15.0); WHITE BLOOD COUNT (AUTO) 3.6 K/uL (4.8-10.8)
[2020-03-26 08:00] VITALS: BP_SYST 127
[2020-03-26 08:08] LABS: ALBUMIN 3.1 g/dL (3.4-4.8); C-REACTIVE PROTEIN QUANT 1.3 mg/dL (0-0.5); CALCIUM 9.9 mg/dL (8.4-11.0); CREATININE 0.99 mg/dL (0.55-1.30); POTASSIUM 3.9 mmol/L (3.5-5.1); TOTAL BILIRUBIN 0.5 mg/dL (0.0-1.0)
[2020-03-26] MEDS ORDERED: ASPIRIN 81 MG TAB.CHEW PO SCH (09:00)
[2020-03-26] MEDS ORDERED: LOSARTAN POTASSIUM 50 MG TABLET (COZAAR) PO SCH (09:00)
[2020-03-26] MEDS ORDERED: SPIRONOLACTONE 25 MG TABLET (ALDACTONE) PO SCH (09:00)
[2020-03-26] MEDS ORDERED: POTASSIUM CHLORIDE 10 MEQ TAB.PRT.SR PO SCH (09:00)
[2020-03-26 09:26] LABS: ERYTHROCYTE SEDIMENTATION RATE 6 MM/HR (0-15)
[2020-03-26] MEDS: ATENOLOL 50 MG TABLET (TENORMIN) PO SCH (09:51)
[2020-03-26] MEDS: FUROSEMIDE 40 MG TABLET PO SCH (09:53)
[2020-03-26] MEDS: NITROGLYCERIN 1 INCH (GM) OINT. TP SCH (09:53)
[2020-03-26] MEDS: PANTOPRAZOLE SODIUM 40 MG TAB PO SCH (09:56)
[2020-03-26] MEDS ORDERED: ASPIRIN 81 MG TAB.CHEW ONE (09:56)
[2020-03-26] MEDS ORDERED: PANTOPRAZOLE SODIUM 40 MG TAB ONE (09:56)
[2020-03-26] MEDS ORDERED: MORPHINE 4 MG/ML INJ. SYRINGE ONE (17:05)
[2020-03-26 17:27] VITALS: BP_SYST 120
== END 2020-03-26 17:45 | disposition home or self-care (01) | DRG 137 ==
LOC: SED 19:23 → SMU 22:39 → STU 03-25 00:07
PROVIDERS: ADMIT Preventive Medicine Preventive Medicine/Occupational Environmental Medicine; ATTEND Preventive Medicine Preventive Medicine/Occupational Environmental Medicine
DX: U07.1 COVID-19 (principal); I50.9 Heart failure, unspecified; I25.10 Atherosclerotic heart disease of native coronary artery without angina pectoris; E87.1 Hypo-osmolality and hyponatremia; R73.9 Hyperglycemia, unspecified; R74.01 Elevation of levels of liver transaminase levels; I42.9 Cardiomyopathy, unspecified; I11.0 Hypertensive heart disease with heart failure; Z88.5 Allergy status to narcotic agent; Z95.0 Presence of cardiac pacemaker
CPT/HCPCS: 36415; 71045; 80048; 80053; 80076; 83690-TC; 83735-TC; 83880; 84100-TC; 84484; 85025; 85651-TC; 86140; 93005; 93306; 96374; 99285; J2060; J2270

== ENCOUNTER 2020-04-28 17:29 | Emergency (ER) | payer OTHER, SELFPAY ==
[~2020-04-28] VITALS: Ht 175.3 cm; Wt 102.1 kg
[~2020-04-28 17:29] MED LIST: ASA81 PO; BISOPROLOL PO; FURO-149 PO; LOSA50TA3 PO; OMEP20CA15 PO; POTA20TA83 PO; SPIR25TA6 PO
[2020-04-28 17:30] VITALS: BP_SYST 102
[2020-04-28] MEDS ORDERED: KETOROLAC TROMETHAMINE 60 MG/2 ML VIAL IM ONE ×2 (17:45→17:50)
[2020-04-28 18:25] LABS: BASOPHILS # (AUTO) 0.1 K/uL (0.0-0.2); BASOPHILS % (AUTO) 0.7 % (0.0-2.0); EOSINOPHILS # (AUTO) 0.2 K/uL (0.0-0.4); EOSINOPHILS % (AUTO) 2.4 % (0.0-4.0); HEMATOCRIT 44.1 % (36-54); HEMOGLOBIN 15.2 g/dL (14.0-18.0); LYMPHOCYTES # (AUTO) 2.5 K/uL (1.0-5.5); LYMPHOCYTES % (AUTO) 35.3 % (20.5-51.5); MEAN CORPUSCULAR HEMOGLOBIN 33 pg (27-31); MEAN CORPUSCULAR HGB CONC 35 % (32-36); MEAN CORPUSCULAR VOLUME 96 fL (79.0-98.0); MONOCYTES # (AUTO) 0.6 K/uL (0.0-1.0); MONOCYTES % (AUTO) 8.3 % (1.7-9.3); NEUTROPHILS # (AUTO) 3.7 K/uL (1.8-7.7); NEUTROPHILS % (AUTO) 53.3 % (40.0-70.0); PLATELET COUNT (AUTO) 220 K/uL (130-430); RED BLOOD CELL COUNT(AUTO) 4.62 MIL/uL (4.2-6.2); RED CELL DISTRIBUTION WIDTH 13.2 % (9.0-15.0)
[2020-04-28 18:54] LABS: BILIRUBIN,URINE NEGATIVE (NEGATIVE); BLOOD, URINE NEGATIVE (NEGATIVE); CLARITY/URINE CLEAR (CLEAR); COLOR,URINE YELLOW (YELLOW); GLUCOSE,URINE NEGATIVE (NEGATIVE); KETONES,URINE NEGATIVE (NEGATIVE); LEUKOCYTE ESTERASE ,URINE NEGATIVE (NEGATIVE); NITRITE, URINE NEGATIVE (NEGATIVE); PH,URINE 5.5 (5.0-8.0); PROTEIN URINE NEGATIVE (NEGATIVE); UROBILINOGEN,URINE 0.2 (0.2-1.0)
[2020-04-28 18:55] LABS: CALCIUM 10.8 mg/dL (8.4-11.0); CREATININE 1.65 mg/dL (0.55-1.30); POTASSIUM 3.9 mmol/L (3.5-5.1)
[2020-04-28] MEDS ORDERED: MORPHINE SULFATE 10 MG/ML VIAL IM ONE (19:00)
[2020-04-28] MEDS ORDERED: ONDANSETRON 4 MG ODT TAB PO ONE (19:00)
[2020-04-28 19:10] LABS: ALBUMIN 3.4 g/dL (3.4-4.8); TOTAL BILIRUBIN 0.4 mg/dL (0.0-1.0)
[2020-04-28 19:34] VITALS: BP_SYST 102
== END 2020-04-28 19:34 | disposition home or self-care (01) ==
LOC: SED 17:29
DX: R10.12 Left upper quadrant pain (principal); I11.0 Hypertensive heart disease with heart failure; I50.9 Heart failure, unspecified; Z95.0 Presence of cardiac pacemaker
CPT/HCPCS: 36415; 74018; 80053; 81003; 82150; 83605; 83615; 83690; 85025; 85610; 85730; 96372; 96374; 99284; J1885; J2270; Q0162

== ENCOUNTER 2020-06-23 11:20 | Emergency (ER) | payer OTHER ==
[~2020-06-23] VITALS: Ht 175.3 cm; Wt 102.1 kg
--- NOTE | 2020-06-23 11:45 | NUR ---
Patient to ER bed 7 to gown for evaluation. Side rails up.
[2020-06-23 11:49] VITALS: BP_SYST 157
--- NOTE | 2020-06-23 11:50 | NUR ---
PT BROUGHT SELF TO ER FOR LEFT SIDED ABD PAIN 12/26, +N/V. TOOK NORCO 5/325 ABOUT 3 HOURS PRIOR TO ARRIVAL WHICH PT STATES MADE PAIN WORSE. HX OF CHF (congestive cardiomyopathy) and pancreatitis. PT IS AAOX4, V/S STABLE
--- NOTE | 2020-06-23 11:55 | NUR ---
ER DR. NIELSEN AT THE BEDSIDE EXAMINING PT
[2020-06-23] MEDS ORDERED: MORPHINE 4 MG INJ. 4 MG/ML VIAL IVP ONE ×2 (12:00→13:30)
[2020-06-23] MEDS ORDERED: ONDANSETRON HCL 4 MG/2 ML VIAL IVP ONE ×2 (12:00→13:30)
[2020-06-23] MEDS ORDERED: KETAMINE 30 MG/3 ML SYRINGE 15 MG in NS 100 ML IV ONE (12:00)
[2020-06-23 12:09] LABS: BASOPHILS # (AUTO) 0.1 K/uL (0.0-0.2); BASOPHILS % (AUTO) 0.6 % (0.0-2.0); EOSINOPHILS # (AUTO) 0.1 K/uL (0.0-0.4); EOSINOPHILS % (AUTO) 1.1 % (0.0-4.0); HEMATOCRIT 44.7 % (36-54); LYMPHOCYTES # (AUTO) 2.2 K/uL (1.0-5.5); LYMPHOCYTES % (AUTO) 20.1 % (20.5-51.5); MEAN CORPUSCULAR HEMOGLOBIN 32 pg (27-31); MEAN CORPUSCULAR HGB CONC 34 % (32-36); MEAN CORPUSCULAR VOLUME 94 fL (79.0-98.0); MONOCYTES % (AUTO) 9.1 % (1.7-9.3); NEUTROPHILS # (AUTO) 7.5 K/uL (1.8-7.7); NEUTROPHILS % (AUTO) 69.1 % (40.0-70.0); PLATELET COUNT (AUTO) 193 K/uL (130-430); RED BLOOD CELL COUNT(AUTO) 4.77 MIL/uL (4.2-6.2); RED CELL DISTRIBUTION WIDTH 13.9 % (9.0-15.0); WHITE BLOOD COUNT (AUTO) 10.8 K/uL (4.8-10.8)
[2020-06-23] MEDS ORDERED: KETAMINE 30 MG/3 ML SYRINGE ONE (12:10)
[2020-06-23 12:21] LABS: CALCIUM 11.7 mg/dL (8.4-11.0); CREATININE 1.55 mg/dL (0.55-1.30); POTASSIUM 4.1 mmol/L (3.5-5.1)
[2020-06-23 12:27] LABS: ALBUMIN 3.7 g/dL (3.4-4.8); TOTAL BILIRUBIN 0.9 mg/dL (0.0-1.0)
--- NOTE | 2020-06-23 12:43 | NUR ---
DR NIELSEN IN TO REASSESS
--- NOTE | 2020-06-23 13:13 | NUR ---
PT STATED PAIN IS TOLERABLE AT THE MOMENT, NO VOMITING OBSERVED
--- NOTE | 2020-06-23 13:48 | NUR ---
TRANSFER INFO [facility] [place] [phone] [facility] [id number]
--- NOTE | 2020-06-23 13:56 | NUR ---
MEDICATED FOR PAIN AND NAUSEA.
--- NOTE | 2020-06-23 14:07 | NUR ---
Patient to be transferred to [facility]. Is being transferred due to higher level of care. Receiving facility has accepting physician and available space. ER physician has signed transfer form. Patient or responsible constitution party has agreed to transfer and signed form. Patient belongings inventoried and will be sent with patient. Copy of nursing notes, lab reports, EKG, Physicians Orders and X-rays to be sent with patient. Report called to MAYUR at receiving facility. Receiving physician is ROSALINE. [ ambulance service has been called for transfer. ETA is NOW
[2020-06-23 14:08] VITALS: BP_SYST 136
== END 2020-06-23 14:07 | disposition designated cancer center or children's hospital (05) ==
LOC: SED 11:20
DX: K85.90 Acute pancreatitis without necrosis or infection, unspecified (principal); I11.0 Hypertensive heart disease with heart failure; I50.9 Heart failure, unspecified; Z95.0 Presence of cardiac pacemaker; Z79.899 Other long term (current) drug therapy; Z79.82 Long term (current) use of aspirin; Z88.6 Allergy status to analgesic agent
CPT/HCPCS: 36415; 80053; 83690; 85025; 93005; 96374; 96375; 96376; 99285; J2270; J2405

== ENCOUNTER 2020-09-10 16:24 | Emergency (ER) | payer OTHER ==
[~2020-09-10] VITALS: Ht 175.3 cm; Wt 102.1 kg
[2020-09-10 16:24] VITALS: BP_SYST 107
[2020-09-10 16:54] LABS: BASOPHILS # (AUTO) 0.2 K/uL (0.0-0.2); BASOPHILS % (AUTO) 1.7 % (0.0-2.0); EOSINOPHILS # (AUTO) 0.3 K/uL (0.0-0.4); EOSINOPHILS % (AUTO) 2.4 % (0.0-4.0); HEMATOCRIT 45.3 % (36-54); HEMOGLOBIN 15.2 g/dL (14.0-18.0); LYMPHOCYTES # (AUTO) 3.6 K/uL (1.0-5.5); LYMPHOCYTES % (AUTO) 32.3 % (20.5-51.5); MEAN CORPUSCULAR HEMOGLOBIN 31 pg (27-31); MEAN CORPUSCULAR HGB CONC 34 % (32-36); MEAN CORPUSCULAR VOLUME 93 fL (79.0-98.0); MONOCYTES # (AUTO) 1.3 K/uL (0.0-1.0); NEUTROPHILS # (AUTO) 5.7 K/uL (1.8-7.7); NEUTROPHILS % (AUTO) 51.6 % (40.0-70.0); PLATELET COUNT (AUTO) 222 K/uL (130-430); RED BLOOD CELL COUNT(AUTO) 4.88 MIL/uL (4.2-6.2); WHITE BLOOD COUNT (AUTO) 11.1 K/uL (4.8-10.8)
[2020-09-10] MEDS: ASPIRIN 81 MG TAB.CHEW PO ONE (16:56)
[2020-09-10 17:03] LABS: CALCIUM 11.5 mg/dL (8.4-11.0); CREATININE 1.4 mg/dL (0.55-1.30); POTASSIUM 3.5 mmol/L (3.5-5.1)
[2020-09-10 17:09] LABS: ALBUMIN 3.6 g/dL (3.4-4.8); TOTAL BILIRUBIN 0.5 mg/dL (0.0-1.0)
[2020-09-10 17:13] LABS: ALCOHOL, BLOOD 153 mg/dL (<10); LIPASE 97 U/L (73-393)
[2020-09-10 17:15] LABS: PROTHROMBIN TIME 10.4 SECS (9.5-12.5)
[2020-09-10] MEDS ORDERED: AZIT-62 PO (18:04)
[2020-09-10 18:12] VITALS: BP_SYST 107
== END 2020-09-10 18:10 | disposition home or self-care (01) ==
LOC: SED 16:24
DX: F10.129 Alcohol abuse with intoxication, unspecified (principal); F10.188 Alcohol abuse with other alcohol-induced disorder; I11.0 Hypertensive heart disease with heart failure; I50.9 Heart failure, unspecified; Z88.5 Allergy status to narcotic agent; Z79.899 Other long term (current) drug therapy
CPT/HCPCS: 36415; 71045; 80053; 83690; 83880; 84484; 85025; 85610; 93005; 99285; G0482

== ENCOUNTER 2020-11-24 00:13 | Emergency (ER) | payer OTHER, SELFPAY ==
[~2020-11-24] VITALS: Ht 175.3 cm; Wt 104.3 kg
[2020-11-24 00:13] VITALS: BP_SYST 151
[~2020-11-24 00:13] MED LIST changes: +AZIT-62 PO
[2020-11-24] MEDS ORDERED: PROCHLORPERAZINE EDISYLATE 10 MG/2 ML VIAL IVP ONE (02:15)
[2020-11-24] MEDS ORDERED: NACL 0.9% 1,000 ML IV ONE (02:15)
[2020-11-24] MEDS ORDERED: MORPHINE 4 MG INJ. 4 MG/ML VIAL IVP ONE ×3 (02:15→07:45)
[2020-11-24 02:38] LABS: BASOPHILS # (AUTO) 0.1 K/uL (0.0-0.2); BASOPHILS % (AUTO) 0.3 % (0.0-2.0); HEMATOCRIT 45.9 % (36-54); HEMOGLOBIN 15.3 g/dL (14.0-18.0); LYMPHOCYTES # (AUTO) 1.6 K/uL (1.0-5.5); LYMPHOCYTES % (AUTO) 9.3 % (20.5-51.5); MEAN CORPUSCULAR HEMOGLOBIN 31 pg (27-31); MEAN CORPUSCULAR HGB CONC 33 % (32-36); MEAN CORPUSCULAR VOLUME 93 fL (79.0-98.0); MONOCYTES # (AUTO) 1.5 K/uL (0.0-1.0); MONOCYTES % (AUTO) 8.9 % (1.7-9.3); NEUTROPHILS # (AUTO) 13.7 K/uL (1.8-7.7); NEUTROPHILS % (AUTO) 81.5 % (40.0-70.0); PLATELET COUNT (AUTO) 251 K/uL (130-430); RED BLOOD CELL COUNT(AUTO) 4.94 MIL/uL (4.2-6.2); RED CELL DISTRIBUTION WIDTH 13.4 % (9.0-15.0); WHITE BLOOD COUNT (AUTO) 16.8 K/uL (4.8-10.8)
[2020-11-24 02:50] LABS: CREATININE 1.22 mg/dL (0.55-1.30); POTASSIUM 4.5 mmol/L (3.5-5.1)
[2020-11-24 02:52] LABS: ALBUMIN 3.4 g/dL (3.4-4.8); TOTAL BILIRUBIN 1.6 mg/dL (0.0-1.0)
[2020-11-24] MEDS ORDERED: MORPHINE 4 MG INJ. 4 MG/ML VIAL ONE (05:44)
[2020-11-24 07:39] VITALS: BP_SYST 165
[2020-11-24] MEDS ORDERED: LABETALOL 100 MG/ 20ML VIAL IVP ONE (07:45)
== END 2020-11-24 08:01 | disposition short-term general hospital (02) ==
LOC: SED 00:13
DX: K85.80 Other acute pancreatitis without necrosis or infection (principal); E83.52 Hypercalcemia; I11.0 Hypertensive heart disease with heart failure; I50.9 Heart failure, unspecified; Z88.5 Allergy status to narcotic agent; Z79.899 Other long term (current) drug therapy; Z20.822 Contact with and (suspected) exposure to COVID-19
CPT/HCPCS: 36415; 76376; 80053; 83690; 85025; 93005; 96361; 96374; 96375; 96376; 99285; J0780; J2270; J3490; J7030; Q9967

== ENCOUNTER 2021-03-10 14:14 | Emergency (ER) | payer OTHER, SELFPAY ==
[~2021-03-10] VITALS: Ht 175.3 cm; Wt 113.4 kg
[2021-03-10 14:14] VITALS: BP_SYST 126
--- NOTE | 2021-03-10 14:18 | NUR ---
BROUGHT BACK TO BED #5 AND TRIAGED, REPORT GIVEN TO SHYANN
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
--- NOTE | 2021-03-10 14:22 | NUR ---
ER DR. SZYMANSKI AT THE BEDSIDE EXAMINING PT
--- NOTE | 2021-03-10 14:34 | NUR ---
PORTABLE X-RAY AT THE BEDSIDE
--- NOTE | 2021-03-10 15:00 | NUR ---
VOLAR splint applied to RIGHT HAND. STRONG pulse noted. Capillary refill < 3 seconds. Patient has ability to move non-splinted digits. Has sensation present to affected site. Skin color within normal limits. Applied for pain management control.
[2021-03-10] MEDS ORDERED: ACET325T PO (15:09)
[2021-03-10] MEDS ORDERED: IBUP-1969 PO (15:09)
[2021-03-10] MEDS: HYDROcodone/ACETAMIN 5-325 MG TAB (NORCO/ VICODIN) PO ONE (15:11)
[2021-03-10 15:22] VITALS: BP_SYST 126
--- NOTE | 2021-03-10 15:26 | NUR ---
Patient given written and verbal discharge instructions and verbalizes understanding. ER MD discussed with patient the results and treatment provided. Patient in stable condition. ID arm band removed. Rx of TYLENOL AND IBUPROFEN given. Patient educated on pain management and to follow up with PMD. Pain Scale 0/10. Opportunity for questions provided and answered. Medication side effect fact sheet provided.
== END 2021-03-10 15:22 | disposition home or self-care (01) ==
LOC: SED 14:14
DX: S62.316A Displaced fracture of base of fifth metacarpal bone, right hand, initial encounter for closed fracture (principal); I11.0 Hypertensive heart disease with heart failure; I50.9 Heart failure, unspecified; Z88.5 Allergy status to narcotic agent; Z79.899 Other long term (current) drug therapy; W51.XXXA Accidental striking against or bumped into by another person, initial encounter; Y93.89 Activity, other specified; Y92.89 Other specified places as the place of occurrence of the external cause; Y99.8 Other external cause status
CPT/HCPCS: 99283

== ENCOUNTER → 2021-03-21 | Emergency (ER) | payer OTHER, SELFPAY ==
[~2021-03-21] VITALS: Ht 170.2 cm; Wt 99.8 kg
[~2021-03-21] MED LIST changes: +ACET325T PO; +ASPIRIN 325 MG TABLET PO ONE; -AZIT-62 PO; +AZIT-93 PO; +IBUP-1969 PO; +INSULIN REGULAR, HUMAN 10 UNITS/0.1 ML INJ SUBCUT ONE; +KETOROLAC TROMETHAMINE 30 MG VIAL IVP ONE; +KETOROLAC TROMETHAMINE 60 MG/2 ML VIAL IM ONE; +MORPHINE 4 MG INJ. 4 MG/ML VIAL IVP ONE; +OXYCODONE/ACETAMINOPHEN 5-325 TABLET PO ONE; +POTA-197 PO; -POTA20TA83 PO
[2021-03-21 18:02] VITALS: BP_SYST 191
--- NOTE | 2021-03-21 18:02 | NUR ---
Patient to ER TENT for evaluation.
--- NOTE | 2021-03-21 18:05 | NUR ---
PATIENT BROUGHT IN COMPLAINING fever/chills, myalgias, headache, fatigue, slight cough the patient has developed burning type left-sided chest pain, 8/10 in severity, nonradiating, slightly pleuritic, worse with exertion, better with rest. NO ACUTE DISTRESS NOTED AT THIS TIME. NO OTHER COMPLAINTS/INJURIES PER PATIENT OR NOTED.
--- NOTE | 2021-03-21 18:10 | NUR ---
CORY MENDOZA at bedside examining patient.
--- NOTE | 2021-03-21 18:10 | NUR ---
Jason ochoa in ED - 03/22/21 at 0021 by SDEDCJM CORY Deutsch at bedside examining patient.
[2021-03-21 19:29] LABS: BASOPHILS % (AUTO) 1.1 % (0.0-2.0); EOSINOPHILS # (AUTO) 0.1 K/uL (0.0-0.4); EOSINOPHILS % (AUTO) 2.1 % (0.0-4.0); HEMATOCRIT 46.1 % (36-54); HEMOGLOBIN 15.6 g/dL (14.0-18.0); LYMPHOCYTES # (AUTO) 1.8 K/uL (1.0-5.5); LYMPHOCYTES % (AUTO) 44.9 % (20.5-51.5); MEAN CORPUSCULAR HEMOGLOBIN 31 pg (27-31); MEAN CORPUSCULAR HGB CONC 34 % (32-36); MEAN CORPUSCULAR VOLUME 92 fL (79.0-98.0); MONOCYTES # (AUTO) 0.6 K/uL (0.0-1.0); MONOCYTES % (AUTO) 14.2 % (1.7-9.3); NEUTROPHILS # (AUTO) 1.5 K/uL (1.8-7.7); NEUTROPHILS % (AUTO) 37.7 % (40.0-70.0); PLATELET COUNT (AUTO) 148 K/uL (130-430); RED BLOOD CELL COUNT(AUTO) 5.04 MIL/uL (4.2-6.2); RED CELL DISTRIBUTION WIDTH 13.3 % (9.0-15.0)
[2021-03-21 21:57] LABS: ANION GAP 8 (5-15); CALCIUM 9.2 mg/dL (8.4-11.0); CHLORIDE 95 mmol/L (98-107); CREATININE 1.36 mg/dL (0.55-1.30); POTASSIUM 4.3 mmol/L (3.5-5.1); SODIUM SERUM 132 mmol/L (136-145); UREA NITROGEN, BLOOD 21 mg/dL (8-21)
[2021-03-21 21:59] LABS: ALANINE AMINOTRANSFERASE 213 U/L (12-78); ALBUMIN 3.6 g/dL (3.4-4.8); ASPARTATE AMINOTRANSFERASE 80 U/L (10-37); TOTAL BILIRUBIN 0.8 mg/dL (0.0-1.0)
[2021-03-21 22:24] LABS: GFR AFRICAN AMERICAN 73 mL/min (>90); GLUCOSE 493 mg/dL (70-99)
[2021-03-21 22:50] LABS: ERYTHROCYTE SEDIMENTATION RATE 8 MM/HR (0-15)
[2021-03-21 23:11] LABS: C-REACTIVE PROTEIN QUANT < 0.2 mg/dL (0-0.5)
[2021-03-21 23:58] LABS: INR 0.9 (0.80-1.20); PROTHROMBIN TIME 10.1 SECS (9.5-12.5)
--- NOTE | 2021-03-22 00:33 | NUR ---
PATIENT NOT IN ER TENT OR WAITING ROOM.
== END | disposition home or self-care (01) ==
LOC: SED 17:48
DX: U07.1 COVID-19 (principal); R07.89 Other chest pain; I10 Essential (primary) hypertension; Z79.899 Other long term (current) drug therapy
CPT/HCPCS: 36415; 71045; 80053; 83880; 85025; 85610; 85651; 86140; 87426; 93005; 96372; 99285; J1885

== ENCOUNTER → 2021-08-29 | Emergency (ER) | payer OTHER ==
[~2021-08-29] VITALS: Ht 175.3 cm; Wt 101.2 kg
[~2021-08-29] MED LIST changes: -ASPIRIN 325 MG TABLET PO ONE; +HYDROmorphone 1 MG/ML INJ. CARTRIDGE IVP ONE; -INSULIN REGULAR, HUMAN 10 UNITS/0.1 ML INJ SUBCUT ONE; -KETOROLAC TROMETHAMINE 30 MG VIAL IVP ONE; -KETOROLAC TROMETHAMINE 60 MG/2 ML VIAL IM ONE; -MORPHINE 4 MG INJ. 4 MG/ML VIAL IVP ONE; +NACL 0.9% 1,000 ML IV ONE; -OXYCODONE/ACETAMINOPHEN 5-325 TABLET PO ONE; +PANT20TA2 PO; +PHE25 PO; +PROCHLORPERAZINE EDISYLATE 10 MG/2 ML VIAL IVP ONE
--- NOTE | 2021-08-29 02:40 | NUR ---
C/O ABDOMINAL PAIN SHARP ON EXAMINATION, P/S-02/25,HAS A CHRONIC PANCREATITIS RUN OUT OF PAIN ORAL MEDS TODAY,TEARY AND SITTING SQUAT LEANING ON CHAIR,VS TAKEN AND PLACED IN RM3 AWAITING MD DISPOSITION
--- NOTE | 2021-08-29 03:36 | NUR ---
0330 IV ACCESS PLACED G20 AT LT AC,MEDICATED FOR PAIN MEDS AND ANTI N&V IVP
[2021-08-29 03:38] VITALS: BP_SYST 136
[2021-08-29 04:23] LABS: CALCIUM 8.1 mg/dL (8.4-11.0); CREATININE 1.32 mg/dL (0.55-1.30); POTASSIUM 3.4 mmol/L (3.5-5.1)
[2021-08-29 04:28] LABS: BASOPHILS # (AUTO) 0.1 K/uL (0.0-0.2); BASOPHILS % (AUTO) 0.8 % (0.0-2.0); EOSINOPHILS # (AUTO) 0.2 K/uL (0.0-0.4); EOSINOPHILS % (AUTO) 3.6 % (0.0-4.0); HEMATOCRIT 42.1 % (36-54); HEMOGLOBIN 14.4 g/dL (14.0-18.0); LYMPHOCYTES # (AUTO) 1.7 K/uL (1.0-5.5); LYMPHOCYTES % (AUTO) 26.2 % (20.5-51.5); MEAN CORPUSCULAR HEMOGLOBIN 32 pg (27-31); MEAN CORPUSCULAR HGB CONC 34 % (32-36); MEAN CORPUSCULAR VOLUME 94 fL (79.0-98.0); MONOCYTES # (AUTO) 0.7 K/uL (0.0-1.0); MONOCYTES % (AUTO) 10.6 % (1.7-9.3); NEUTROPHILS # (AUTO) 3.8 K/uL (1.8-7.7); NEUTROPHILS % (AUTO) 58.8 % (40.0-70.0); PLATELET COUNT (AUTO) 156 K/uL (130-430); RED BLOOD CELL COUNT(AUTO) 4.48 MIL/uL (4.2-6.2); RED CELL DISTRIBUTION WIDTH 13.2 % (9.0-15.0); WHITE BLOOD COUNT (AUTO) 6.4 K/uL (4.8-10.8)
[2021-08-29 04:29] LABS: ALBUMIN 3.3 g/dL (3.4-4.8); TOTAL BILIRUBIN 0.5 mg/dL (0.0-1.0)
[2021-08-29 04:43] VITALS: BP_SYST 117
--- NOTE | 2021-08-29 04:50 | NUR ---
URINE SAMPLE COLLECTED AND SENT TO LAB
--- NOTE | 2021-08-29 06:00 | NUR ---
DR Cleo SANTIZO AT BEDSIDE RE EVALUATED PATIENT.
--- NOTE | 2021-08-29 06:53 | NUR ---
Patient given written and verbal discharge instructions and verbalizes understanding. CORY SANTIZO MD discussed with patient the results and treatment provided. Patient in stable condition. ID arm band removed. IV catheter removed intact and dressing applied, no active bleeding. Rx of NORCO TAB given. Patient educated on pain management and to follow up with PMD. Pain Scale . Opportunity for questions provided and answered. Medication side effect fact sheet provided.
[2021-08-29 07:27] LABS: BILIRUBIN,URINE NEGATIVE (NEGATIVE); BLOOD, URINE NEGATIVE (NEGATIVE); CLARITY/URINE CLEAR (CLEAR); COLOR,URINE YELLOW (YELLOW); GLUCOSE,URINE NEGATIVE (NEGATIVE); KETONES,URINE NEGATIVE (NEGATIVE); LEUKOCYTE ESTERASE ,URINE NEGATIVE (NEGATIVE); NITRITE, URINE NEGATIVE (NEGATIVE); PROTEIN URINE NEGATIVE (NEGATIVE); UROBILINOGEN,URINE 0.2 (0.2-1.0)
--- NOTE | 2021-09-14 03:29 | NUR ---
Addendum: NaCl 0.9% 1000ml Start time:03:34hr End time: 04:34hr
== END | disposition home or self-care (01) ==
LOC: SED 01:23
DX: K86.1 Other chronic pancreatitis (principal); R10.13 Epigastric pain; I11.0 Hypertensive heart disease with heart failure; I50.9 Heart failure, unspecified; Z88.5 Allergy status to narcotic agent; Z79.899 Other long term (current) drug therapy
CPT/HCPCS: 36415; 80053; 81003; 83690; 85025; 96361; 96374; 96375; 99284; J0780; J1170; J7030

== ENCOUNTER → 2021-10-08 | Emergency (ER) | payer OTHER ==
[~2021-10-08] VITALS: Ht 175.3 cm; Wt 99.8 kg
[~2021-10-08] MED LIST changes: +HYDR-3917 PO; -HYDROmorphone 1 MG/ML INJ. CARTRIDGE IVP ONE; +KETOROLAC TROMETHAMINE 60 MG/2 ML VIAL IM ONE; -NACL 0.9% 1,000 ML IV ONE; -PROCHLORPERAZINE EDISYLATE 10 MG/2 ML VIAL IVP ONE
[2021-10-08 16:37] VITALS: BP_SYST 119
--- NOTE | 2021-10-08 17:34 | NUR ---
PT wanted to sign out AMA- however will stay now.
[2021-10-08 17:41] LABS: BASOPHILS # (AUTO) 0.1 K/uL (0.0-0.2); BASOPHILS % (AUTO) 0.8 % (0.0-2.0); EOSINOPHILS # (AUTO) 0.1 K/uL (0.0-0.4); EOSINOPHILS % (AUTO) 1.3 % (0.0-4.0); HEMATOCRIT 45.1 % (36-54); HEMOGLOBIN 15.2 g/dL (14.0-18.0); LYMPHOCYTES # (AUTO) 2.2 K/uL (1.0-5.5); LYMPHOCYTES % (AUTO) 29.5 % (20.5-51.5); MEAN CORPUSCULAR HEMOGLOBIN 32 pg (27-31); MEAN CORPUSCULAR HGB CONC 34 % (32-36); MEAN CORPUSCULAR VOLUME 93 fL (79.0-98.0); MONOCYTES # (AUTO) 0.7 K/uL (0.0-1.0); MONOCYTES % (AUTO) 9.2 % (1.7-9.3); NEUTROPHILS # (AUTO) 4.4 K/uL (1.8-7.7); NEUTROPHILS % (AUTO) 59.2 % (40.0-70.0); PLATELET COUNT (AUTO) 180 K/uL (130-430); RED BLOOD CELL COUNT(AUTO) 4.83 MIL/uL (4.2-6.2); RED CELL DISTRIBUTION WIDTH 12.6 % (9.0-15.0); WHITE BLOOD COUNT (AUTO) 7.4 K/uL (4.8-10.8)
[2021-10-08 17:44] LABS: ANION GAP 10 (5-15); CALCIUM 9.3 mg/dL (8.4-11.0); CHLORIDE 102 mmol/L (98-107); CREATININE 1.29 mg/dL (0.55-1.30); POTASSIUM 3.8 mmol/L (3.5-5.1); SODIUM SERUM 135 mmol/L (136-145); UREA NITROGEN, BLOOD 25 mg/dL (8-21)
[2021-10-08 17:46] LABS: GFR AFRICAN AMERICAN 77 mL/min (>90)
[2021-10-08 17:48] LABS: ALANINE AMINOTRANSFERASE 190 U/L (12-78); ALBUMIN 3.7 g/dL (3.4-4.8); AMYLASE 50 U/L (0-100); ASPARTATE AMINOTRANSFERASE 78 U/L (10-37); LACTATE DEHYDROGENASE 164 U/L (85-227); LIPASE 127 U/L (73-393); TOTAL BILIRUBIN 0.3 mg/dL (0.0-1.0)
[2021-10-08 17:52] LABS: C-REACTIVE PROTEIN QUANT < 0.2 mg/dL (0-0.5)
[2021-10-08 17:56] LABS: GLUCOSE 177 mg/dL (70-99)
--- NOTE | 2021-10-08 18:51 | NUR ---
Patient given written and verbal discharge instructions and verbalizes understanding. ER MD discussed with patient the results and treatment provided. Patient in stable condition. ID arm band removed. Rx of OMEPRAZOLE,NORCO given. Patient educated on pain management and to follow up with PMD. Pain Scale 3. Opportunity for questions provided and answered. Medication side effect fact sheet provided.
== END | disposition home or self-care (01) ==
LOC: SED 16:21
DX: R10.13 Epigastric pain (principal); R11.2 Nausea with vomiting, unspecified; I11.0 Hypertensive heart disease with heart failure; I50.9 Heart failure, unspecified; Z88.5 Allergy status to narcotic agent; Z79.899 Other long term (current) drug therapy
CPT/HCPCS: 99284; 74176; 80053; 82150; 83615; 83690; 85025; 86140; 36415; 76376; 96372; 83605; J1885

== ENCOUNTER 2021-11-24 10:50 | Emergency (ER) | payer OTHER ==
[~2021-11-24] VITALS: Ht 175.3 cm; Wt 99.8 kg
[2021-11-24 10:50] VITALS: BP_SYST 127
[~2021-11-24 10:50] MED LIST changes: -KETOROLAC TROMETHAMINE 60 MG/2 ML VIAL IM ONE
--- NOTE | 2021-11-24 10:50 | NUR ---
BROUGHT BACK TO BED #3 AND TRIAGED. REPORT GIVEN TO ROSI
--- NOTE | 2021-11-24 11:23 | NUR ---
PT RECEIVING CXR.
[2021-11-24 11:29] LABS: BASOPHILS # (AUTO) 0.1 K/uL (0.0-0.2); BASOPHILS % (AUTO) 1.5 % (0.0-2.0); EOSINOPHILS # (AUTO) 0.1 K/uL (0.0-0.4); EOSINOPHILS % (AUTO) 1.7 % (0.0-4.0); LYMPHOCYTES # (AUTO) 2.5 K/uL (1.0-5.5); LYMPHOCYTES % (AUTO) 44.2 % (20.5-51.5); MEAN CORPUSCULAR VOLUME 91 fL (79.0-98.0); MONOCYTES # (AUTO) 0.4 K/uL (0.0-1.0); MONOCYTES % (AUTO) 7.3 % (1.7-9.3); NEUTROPHILS # (AUTO) 2.6 K/uL (1.8-7.7); NEUTROPHILS % (AUTO) 45.3 % (40.0-70.0); PLATELET COUNT (AUTO) 144 K/uL (130-430); RED BLOOD CELL COUNT(AUTO) 4.84 MIL/uL (4.2-6.2); RED CELL DISTRIBUTION WIDTH 12.5 % (9.0-15.0); WHITE BLOOD COUNT (AUTO) 5.7 K/uL (4.8-10.8)
--- NOTE | 2021-11-24 11:30 | NUR ---
DR. SIMMS AT BEDSIDE TO ASSESS PT.
[2021-11-24 11:44] LABS: ANION GAP 6 (5-15); CALCIUM 9.3 mg/dL (8.4-11.0); CHLORIDE 103 mmol/L (98-107); CREATININE 1.12 mg/dL (0.55-1.30); GLUCOSE 241 mg/dL (70-99); POTASSIUM 4.8 mmol/L (3.5-5.1); SODIUM SERUM 138 mmol/L (136-145); UREA NITROGEN, BLOOD 14 mg/dL (8-21)
[2021-11-24] MEDS ORDERED: FUROSEMIDE 100 MG/10 ML VIAL IVP ONE (11:45)
[2021-11-24 11:50] LABS: ALANINE AMINOTRANSFERASE 123 U/L (12-78); ALBUMIN 3.1 g/dL (3.4-4.8); ASPARTATE AMINOTRANSFERASE 50 U/L (10-37); TOTAL BILIRUBIN 0.5 mg/dL (0.0-1.0)
[2021-11-24 11:52] LABS: GFR AFRICAN AMERICAN 91 mL/min (>90)
[2021-11-24 12:02] LABS: ALCOHOL, BLOOD < 3 mg/dL (<10)
--- NOTE | 2021-11-24 12:45 | NUR ---
DR. SIMMS AT BEDSIDE TO DISCUSS POC. URINE OBTAINED.
--- NOTE | 2021-11-24 13:30 | NUR ---
DR. MONTAGUE, [facility] EPRP DOC, CALLED BACK TO SPEAK TO DR. SIMMS
[2021-11-24 13:45] VITALS: BP_SYST 146
[2021-11-24 14:00] LABS: BILIRUBIN,URINE NEGATIVE (NEGATIVE); BLOOD, URINE NEGATIVE (NEGATIVE); CLARITY/URINE CLEAR (CLEAR); GLUCOSE,URINE TRACE (NEGATIVE); KETONES,URINE NEGATIVE (NEGATIVE); LEUKOCYTE ESTERASE ,URINE NEGATIVE (NEGATIVE); NITRITE, URINE NEGATIVE (NEGATIVE); PH,URINE 5.5 (5.0-8.0); PROTEIN URINE NEGATIVE (NEGATIVE); UROBILINOGEN,URINE 0.2 (0.2-1.0)
[2021-11-24 14:02] LABS: COLOR,URINE STRAW (YELLOW)
[2021-11-24 23:42] LABS: HEMOGLOBIN 15.1 g/dL (14.0-18.0); MEAN CORPUSCULAR HEMOGLOBIN 31 pg (27-31); MEAN CORPUSCULAR HGB CONC 33 % (32-36)
== END 2021-11-24 13:48 | disposition home or self-care (01) ==
LOC: SED 10:50
DX: I11.0 Hypertensive heart disease with heart failure (principal); I50.21 Acute systolic (congestive) heart failure; R06.02 Shortness of breath; Z88.5 Allergy status to narcotic agent; Z79.899 Other long term (current) drug therapy
CPT/HCPCS: 99285; 96374; 71045; 80053; 83880; 85025; 84484; 36415; 93005; 81003; G0482; J1940

== ENCOUNTER 2021-12-17 21:28 | Emergency (ER) | payer OTHER ==
[~2021-12-17] VITALS: Ht 175.3 cm; Wt 94.3 kg
[2021-12-17 21:37] VITALS: BP_SYST 126
--- NOTE | 2021-12-17 21:41 | NUR ---
Pt from home with blood sugar over 400 past 2 days. 394 on arrival. Pt reports thrist and leg cramps. VSLeona ELENA made aware.
--- NOTE | 2021-12-17 22:14 | NUR ---
RECEIVED REPORT FROM TRIAGE NURSE. PATIENT AMBULATORY WITH STEADY GAIT TO ED ROOM 4 W/ C/O HYPERGLYCEMIA X 2 DAYS. REPORTS HE HAS NOT BEEN ABLE TO KEEP HIS SUGARS BELOW 500. HE REPORTS POLYDIPSIA AND BLE CRAMPING. HE REPORTS HX OF PACEMAKER, CHF, AND DM. REPORTS COMPLIANCE WITH DM MEDICATIONS. HE IS SITTING ON SIDE OF STRETCHER RESTING COMFORTABLY. AWAITING MD CASTLE AND ORDERS.
[2021-12-17] MEDS ORDERED: NACL 0.9% 1,000 ML IV ONE (22:30)
[2021-12-17 23:00] LABS: EOSINOPHILS # (AUTO) 0.1 K/uL (0.0-0.4); EOSINOPHILS % (AUTO) 1.7 % (0.0-4.0); HEMATOCRIT 40.5 % (36-54); LYMPHOCYTES # (AUTO) 1.7 K/uL (1.0-5.5); LYMPHOCYTES % (AUTO) 40.9 % (20.5-51.5); MEAN CORPUSCULAR VOLUME 92 fL (79.0-98.0); MONOCYTES # (AUTO) 0.5 K/uL (0.0-1.0); MONOCYTES % (AUTO) 12.8 % (1.7-9.3); NEUTROPHILS # (AUTO) 1.8 K/uL (1.8-7.7); NEUTROPHILS % (AUTO) 43.6 % (40.0-70.0); PLATELET COUNT (AUTO) 112 K/uL (130-430); RED BLOOD CELL COUNT(AUTO) 4.43 MIL/uL (4.2-6.2); RED CELL DISTRIBUTION WIDTH 12.6 % (9.0-15.0); WHITE BLOOD COUNT (AUTO) 4.2 K/uL (4.8-10.8)
[2021-12-18 00:28] LABS: ALANINE AMINOTRANSFERASE 102 U/L (12-78); ALBUMIN 3.2 g/dL (3.4-4.8); ANION GAP 4 (5-15); ASPARTATE AMINOTRANSFERASE 34 U/L (10-37); CALCIUM 8.8 mg/dL (8.4-11.0); CHLORIDE 103 mmol/L (98-107); CREATININE 1.36 mg/dL (0.55-1.30); GLUCOSE 376 mg/dL (70-99); POTASSIUM 4.4 mmol/L (3.5-5.1); TOTAL BILIRUBIN 0.2 mg/dL (0.0-1.0); UREA NITROGEN, BLOOD 21 mg/dL (8-21)
[2021-12-18 00:34] LABS: GFR AFRICAN AMERICAN 73 mL/min (>90)
[2021-12-18 01:18] LABS: ACETONE, SERUM NEGATIVE (NEGATIVE)
[2021-12-18] MEDS ORDERED: NACL 0.9% 1,000 ML IV ONE (01:30)
== END 2021-12-18 00:55 | disposition home or self-care (01) ==
LOC: SED 21:28
DX: E11.65 Type 2 diabetes mellitus with hyperglycemia (principal); I10 Essential (primary) hypertension; Z88.5 Allergy status to narcotic agent; Z79.899 Other long term (current) drug therapy
CPT/HCPCS: 99284; 96360; 80053; 82009; 82962; 85025; 84484; 36415; 93005; 96361; J7030 ×2

== ENCOUNTER 2022-02-20 09:36 | Emergency (ER) | payer OTHER ==
[~2022-02-20] VITALS: Ht 175.3 cm; Wt 133.8 kg
[2022-02-20 09:36] VITALS: BP_SYST 116
[2022-02-20] MEDS ORDERED: ALBUTEROL SULFATE 0.083% 2.5 MG/3 ML VIAL.NEB INH ONE (09:45)
[2022-02-20] MEDS ORDERED: MAGNESIUM SULFATE 50 ML IV ONE (09:45)
[2022-02-20] MEDS ORDERED: cefTRIAXone 1 GM IVPB PREMIX 50 ML IV ONE (09:45)
[2022-02-20] MEDS ORDERED: FUROSEMIDE 40 MG/4 ML VIAL IVP ONE (09:45)
[2022-02-20] MEDS ORDERED: AZITHROMYCIN 500 MG in NS 250 ML IV ONE (09:45)
[2022-02-20] MEDS ORDERED: methylPREDNISolone SOD SUCC/PF 62.5 MG/ML VIAL IVP ONE (09:45)
[2022-02-20 10:12] LABS: BASOPHILS # (AUTO) 0.1 K/uL (0.0-0.2); BASOPHILS % (AUTO) 0.8 % (0.0-2.0); EOSINOPHILS # (AUTO) 0.2 K/uL (0.0-0.4); EOSINOPHILS % (AUTO) 3.2 % (0.0-4.0); HEMATOCRIT 40.6 % (36-54); HEMOGLOBIN 13.8 g/dL (14.0-18.0); LYMPHOCYTES # (AUTO) 1.7 K/uL (1.0-5.5); LYMPHOCYTES % (AUTO) 25.1 % (20.5-51.5); MEAN CORPUSCULAR HEMOGLOBIN 31 pg (27-31); MEAN CORPUSCULAR HGB CONC 34 % (32-36); MEAN CORPUSCULAR VOLUME 91 fL (79.0-98.0); MONOCYTES # (AUTO) 0.5 K/uL (0.0-1.0); MONOCYTES % (AUTO) 7.5 % (1.7-9.3); NEUTROPHILS # (AUTO) 4.3 K/uL (1.8-7.7); NEUTROPHILS % (AUTO) 63.4 % (40.0-70.0); PLATELET COUNT (AUTO) 177 K/uL (130-430); RED BLOOD CELL COUNT(AUTO) 4.48 MIL/uL (4.2-6.2); RED CELL DISTRIBUTION WIDTH 13.8 % (9.0-15.0); WHITE BLOOD COUNT (AUTO) 6.8 K/uL (4.8-10.8)
[2022-02-20] MEDS ORDERED: AZITHROMYCIN 500 MG/VIAL (ZITHROMAX) IV ONE (10:19)
[2022-02-20 10:37] LABS: ANION GAP 7 (5-15); CALCIUM 8.3 mg/dL (8.4-11.0); CHLORIDE 107 mmol/L (98-107); CREATININE 1.13 mg/dL (0.55-1.30); GLUCOSE 150 mg/dL (70-99); UREA NITROGEN, BLOOD 21 mg/dL (8-21)
[2022-02-20 10:46] LABS: ALANINE AMINOTRANSFERASE 249 U/L (12-78); ALBUMIN 3.4 g/dL (3.4-4.8); ASPARTATE AMINOTRANSFERASE 86 U/L (10-37); TOTAL BILIRUBIN 0.5 mg/dL (0.0-1.0)
[2022-02-20 10:56] LABS: GFR AFRICAN AMERICAN 90 mL/min (>90)
[2022-02-20] MEDS ORDERED: GLIP5TAB26 PO (11:19)
[2022-02-20] MEDS ORDERED: METF-1069 PO (11:19)
[2022-02-20] MEDS ORDERED: FURO-149 PO (11:19)
[2022-02-20] MEDS ORDERED: TRAZ50TA54 PO (11:19)
[2022-02-20 17:42] VITALS: BP_SYST 123
== END 2022-02-20 17:42 | disposition short-term general hospital (02) ==
LOC: SED 09:36
DX: I11.0 Hypertensive heart disease with heart failure (principal); I50.9 Heart failure, unspecified; J44.1 Chronic obstructive pulmonary disease with (acute) exacerbation; R06.02 Shortness of breath; R50.9 Fever, unspecified; R05.9 Cough, unspecified; Z88.5 Allergy status to narcotic agent; Z79.899 Other long term (current) drug therapy; Z20.822 Contact with and (suspected) exposure to COVID-19
CPT/HCPCS: 80053; 82962; 83880; 85025; 87040; 84484; 36415; 71045; 94640; 36600; 82803; 99285; 96365; 96367; 96375; 87426; J0456; J0696; J1940; J3475; J2930; J7613

== ENCOUNTER 2022-07-11 16:22 | Emergency (ER) | payer OTHER ==
[~2022-07-11] VITALS: Ht 175.3 cm; Wt 93.4 kg
[~2022-07-11 16:22] MED LIST changes: +GLIP5TAB26 PO; +METF-1069 PO; +TRAZ50TA54 PO
[2022-07-11 16:40] VITALS: BP_SYST 114
--- NOTE | 2022-07-11 16:47 | NUR ---
TRIAGE COMPLETE. AWAIT ROOM ASSIGNMENT. PT STATES SUDDEN ONSET UMBILICAL AND SURROUNDING AREA, REDNESS AND SWELLING W/ INCREASED PAIN. PT DENIES KNOWN PRECIPITATING FACTORS. PT STATES ALL SYMPTOMS BEGAN ON SUNDAY.
--- NOTE | 2022-07-11 16:51 | NUR ---
TO MD AREA AMBULATORY. REPORT TO PRIMARY RN.
[2022-07-11] MEDS ORDERED: MORPHINE 2 MG/ML INJ. SYRINGE IM ONE (17:15)
[2022-07-11 17:19] LABS: BASOPHILS # (AUTO) 0.1 K/uL (0.0-0.2); BASOPHILS % (AUTO) 0.7 % (0.0-2.0); EOSINOPHILS # (AUTO) 0.2 K/uL (0.0-0.4); EOSINOPHILS % (AUTO) 1.5 % (0.0-4.0); HEMOGLOBIN 15.9 g/dL (14.0-18.0); LYMPHOCYTES # (AUTO) 2.3 K/uL (1.0-5.5); LYMPHOCYTES % (AUTO) 18.5 % (20.5-51.5); MEAN CORPUSCULAR HEMOGLOBIN 32 pg (27-31); MEAN CORPUSCULAR HGB CONC 33 % (32-36); MEAN CORPUSCULAR VOLUME 95 fL (79.0-98.0); MONOCYTES # (AUTO) 1.2 K/uL (0.0-1.0); MONOCYTES % (AUTO) 9.4 % (1.7-9.3); NEUTROPHILS # (AUTO) 8.9 K/uL (1.8-7.7); NEUTROPHILS % (AUTO) 69.9 % (40.0-70.0); PLATELET COUNT (AUTO) 180 K/uL (130-430); RED BLOOD CELL COUNT(AUTO) 5.04 MIL/uL (4.2-6.2); RED CELL DISTRIBUTION WIDTH 13.2 % (9.0-15.0); WHITE BLOOD COUNT (AUTO) 12.7 K/uL (4.8-10.8)
[2022-07-11 17:35] LABS: ALANINE AMINOTRANSFERASE 171 U/L (12-78); ALBUMIN 3.5 g/dL (3.4-4.8); ANION GAP 9 (5-15); ASPARTATE AMINOTRANSFERASE 66 U/L (10-37); CALCIUM 8.6 mg/dL (8.4-11.0); CHLORIDE 102 mmol/L (98-107); CREATININE 1.38 mg/dL (0.55-1.30); GFR AFRICAN AMERICAN 71 mL/min (>90); GLUCOSE 160 mg/dL (70-99); TOTAL BILIRUBIN 0.4 mg/dL (0.0-1.0); UREA NITROGEN, BLOOD 21 mg/dL (8-21)
[2022-07-11 17:36] LABS: C-REACTIVE PROTEIN QUANT < 0.2 mg/dL (0-0.5)
--- NOTE | 2022-07-11 17:45 | NUR ---
RADIOLOGY TRANSPORT PT TO C/T SCAN IN BED.
--- NOTE | 2022-07-11 18:46 | NUR ---
ASSISTED PT TO STAND AND USE URINAL AT BEDSIDE. PT OUTPUT 250ML YELLOW CLEAR URINE. PT IN BED RESTING BEDSIDE VSS.
[2022-07-11] MEDS ORDERED: MORPHINE 2 MG/ML INJ. SYRINGE IVP ONE ×2 (19:15→22:15)
--- NOTE | 2022-07-11 19:25 | NUR ---
ENDORSED ALL CARE TO LIYA ABRAMS. ALL QUESTIONS AND CONCERNS ADDRESSED.
--- NOTE | 2022-07-11 20:00 | NUR ---
FIRST CONTACT WITH PT. ASSESSMENT COMPLETED. AWAITING ADDITIONAL EVAL AND ORDERS.
[2022-07-11] MEDS ORDERED: VANCOMYCIN HCL 1,000 MG in NS 250 ML IV SCH (22:00)
--- NOTE | 2022-07-11 22:00 | NUR ---
PT RESTING QUIETLY. AWAITING [facility] TRANSFER. MEDICATED PER ORDER FOR CONTINUED PAIN
[2022-07-11] MEDS ORDERED: VANCOMYCIN HCL 1000 MG/VIAL IV ONE (22:10)
--- NOTE | 2022-07-12 00:05 | NUR ---
PT RESTING QUIETLY WITH NO SIGNS OF DISTRESS. AWAITING [facility]
[2022-07-12] MEDS ORDERED: HYDROcodone/ACETAMIN 5-325 MG TAB (NORCO/ VICODIN) PO ONE (01:45)
--- NOTE | 2022-07-12 02:00 | NUR ---
PT ASLEEP. VITALS STABLE
--- NOTE | 2022-07-12 06:15 | NUR ---
REPORT CALLED TO [facility], SPOKE TO LIYA TELLEZ
--- NOTE | 2022-07-12 06:19 | NUR ---
[facility] AT BEDSIDE FOR REPORT AND TRANSPORT TO [facility].
--- NOTE | 2022-07-12 06:21 | NUR ---
Patient to be transferred to [facility]. Is being transferred due to higher level of care. Receiving facility has accepting physician and available space. ER physician MELI has signed transfer form. Patient or responsible republican has agreed to transfer and signed form. Patient belongings inventoried and will be sent with patient. Copy of nursing notes, lab reports, EKG, Physicians Orders and X-rays to be sent with patient. Report called to LIYA TELLEZ at receiving facility. Receiving physician is . ambulance service has been called for transfer. ETA is 0630.
[2022-07-12 06:22] VITALS: BP_SYST 122
== END 2022-07-12 06:21 | disposition short-term general hospital (02) ==
LOC: SED 16:22
DX: T81.49XA Infection following a procedure, other surgical site, initial encounter (principal); A41.9 Sepsis, unspecified organism; R65.20 Severe sepsis without septic shock; I10 Essential (primary) hypertension; Z88.5 Allergy status to narcotic agent; Z79.899 Other long term (current) drug therapy; Z20.822 Contact with and (suspected) exposure to COVID-19
CPT/HCPCS: 99285; 74176; 96365; 96375; 87426; 80053; 82962; 85025; 86140; 87040; 36415; 76376; 96376; 96372; 83605; J3370; J2270

== ENCOUNTER 2022-08-25 08:35 | Emergency (ER) | payer OTHER ==
[~2022-08-25] VITALS: Ht 175.3 cm; Wt 93.0 kg
--- NOTE | 2022-08-25 08:40 | NUR ---
Patient triaged and placed in room 2. PT BIB SELF C/O ABDOMINAL PAIN. REPORT GIVEN TO LIYA MEYERS.
[2022-08-25 08:43] VITALS: BP_SYST 124
--- NOTE | 2022-08-25 08:44 | NUR ---
PT BIB FROM HOME C/O ABD PAIN 12/26. PAIN IS NON RADIATEING IN THE UPPER RIGHT AND LEFT QUADRANT. PT STATES HISTORY OF PANREATITIS, NE X2, CHF, HTN. PT STATES TAKES NORCO AT HOME PRN HOWEVER RAN OUT OF MEDICATION. PT HAS AND ICD PACEMAKER IN PLACE. PT RESTING IN BED IN GOWN
[2022-08-25] MEDS ORDERED: ONDANSETRON 4 MG ODT TAB PO ONE (08:45)
[2022-08-25] MEDS ORDERED: KETOROLAC TROMETHAMINE 60 MG/2 ML VIAL IM ONE (08:45)
[2022-08-25 08:58] LABS: BILIRUBIN,URINE NEGATIVE (NEGATIVE); BLOOD, URINE NEGATIVE (NEGATIVE); CLARITY/URINE CLEAR (CLEAR); COLOR,URINE YELLOW (YELLOW); GLUCOSE,URINE 3+ (NEGATIVE); KETONES,URINE NEGATIVE (NEGATIVE); LEUKOCYTE ESTERASE ,URINE NEGATIVE (NEGATIVE); NITRITE, URINE NEGATIVE (NEGATIVE); PROTEIN URINE TRACE (NEGATIVE)
--- NOTE | 2022-08-25 09:15 | NUR ---
ER at bedside examining patient.
[2022-08-25 09:21] LABS: BASOPHILS # (AUTO) 0.1 K/uL (0.0-0.2); BASOPHILS % (AUTO) 0.9 % (0.0-2.0); EOSINOPHILS # (AUTO) 0.2 K/uL (0.0-0.4); EOSINOPHILS % (AUTO) 2.9 % (0.0-4.0); HEMATOCRIT 48.6 % (36-54); HEMOGLOBIN 16.4 g/dL (14.0-18.0); LYMPHOCYTES # (AUTO) 2.2 K/uL (1.0-5.5); MEAN CORPUSCULAR HEMOGLOBIN 32 pg (27-31); MEAN CORPUSCULAR HGB CONC 34 % (32-36); MEAN CORPUSCULAR VOLUME 94 fL (79.0-98.0); MONOCYTES # (AUTO) 0.7 K/uL (0.0-1.0); MONOCYTES % (AUTO) 11.3 % (1.7-9.3); NEUTROPHILS # (AUTO) 3.2 K/uL (1.8-7.7); NEUTROPHILS % (AUTO) 49.9 % (40.0-70.0); PLATELET COUNT (AUTO) 179 K/uL (130-430); RED BLOOD CELL COUNT(AUTO) 5.19 MIL/uL (4.2-6.2); RED CELL DISTRIBUTION WIDTH 13.5 % (9.0-15.0); WHITE BLOOD COUNT (AUTO) 6.3 K/uL (4.8-10.8)
[2022-08-25 09:22] LABS: BACTERIA,URINE None Seen /HPF (None Seen); CALCIUM OXALATE CRYSTALS,UR 0-4 /HPF (None Seen); RBC,URINE 0-3 /HPF (0-3); WBC,URINE NONE SEEN /HPF (0-3)
[2022-08-25 09:54] LABS: ANION GAP 10 (5-15); CALCIUM 9.1 mg/dL (8.4-11.0); CHLORIDE 99 mmol/L (98-107); CREATININE 1.12 mg/dL (0.55-1.30); GFR AFRICAN AMERICAN 90 mL/min (>90); GLUCOSE 162 mg/dL (70-99); UREA NITROGEN, BLOOD 20 mg/dL (8-21)
[2022-08-25 09:57] LABS: ALANINE AMINOTRANSFERASE 203 U/L (12-78); ALBUMIN 3.6 g/dL (3.4-4.8); AMYLASE 48 U/L (0-100); ASPARTATE AMINOTRANSFERASE 81 U/L (10-37); LACTATE DEHYDROGENASE 190 U/L (85-227); LIPASE 86 U/L (73-393); TOTAL BILIRUBIN 0.6 mg/dL (0.0-1.0)
[2022-08-25 09:58] LABS: C-REACTIVE PROTEIN QUANT < 0.2 mg/dL (0-0.5)
[2022-08-25 10:04] LABS: ACETONE, SERUM NEGATIVE (NEGATIVE)
[2022-08-25] MEDS ORDERED: IBUP-1971 PO (10:52)
[2022-08-25] MEDS ORDERED: TRAM50TA2 PO (10:52)
[2022-08-25 11:04] VITALS: BP_SYST 112
--- NOTE | 2022-08-25 11:07 | NUR ---
Patient given written and verbal discharge instructions and verbalizes understanding. ER MD discussed with patient the results and treatment provided. Patient in stable condition. ID arm band removed. Rx of IBUPROFEN, TRAMADOL given. Patient educated on pain management and to follow up with PMD. Pain Scale 0/10. Opportunity for questions provided and answered. Medication side effect fact sheet provided.
== END 2022-08-25 11:07 | disposition home or self-care (01) ==
LOC: SED 08:35
DX: R10.13 Epigastric pain (principal); R11.2 Nausea with vomiting, unspecified; I10 Essential (primary) hypertension; Z88.5 Allergy status to narcotic agent; Z79.899 Other long term (current) drug therapy
CPT/HCPCS: 99285; 74176; 80053; 81000; 82009; 82150; 83615; 83690; 85025; 86140; 36415; 76376; 96372; 83605; Q0162; J1885

== ENCOUNTER 2022-10-20 21:50 | Emergency (ER) | payer OTHER ==
[~2022-10-20] VITALS: Ht 175.3 cm; Wt 88.5 kg
[~2022-10-20 21:50] MED LIST changes: +IBUP-1971 PO; +TRAM50TA2 PO
[2022-10-20 22:01] VITALS: BP_SYST 118; PULSE 100; RESP 18; TEMP 98.2; O2SAT 98
--- NOTE | 2022-10-20 22:06 | NUR ---
Placed in room 03 . Placed on phototypesetting equipment monitor, blood pressure machine and pulse oximeter. To gown for exam. Side rails up. Report given to LIYA ABRAMS
--- NOTE | 2022-10-20 22:10 | NUR ---
FIRDT CONTACT WITH PT. ASSESSMENT COMPLETED. AWAITING EVAL AND ORDERS.
[2022-10-20] MEDS ORDERED: KETOROLAC TROMETHAMINE 30 MG VIAL IVP ONE (22:15)
[2022-10-20] MEDS ORDERED: ONDANSETRON HCL 4 MG/2 ML VIAL IVP ONE (22:15)
[2022-10-20] MEDS ORDERED: NACL 0.9% 1,000 ML IV ONE (22:15)
--- NOTE | 2022-10-20 22:20 | NUR ---
AFTER IV INSERTION AND MEDS PT REQUESTED TO GET OUT OF BED. I EXPLAINED TO PT THAT IT IS SAFER IN BED AND THAT I COULD ADJUST THE BACK SO IT WOULD BE LIKE SITTING UPRIGHT. PT AGREED. I LEFT URINE BOTTLE AT BEDSIDE AND SEATED OUTSIDE BED WITHIN VIEW.
--- NOTE | 2022-10-20 22:30 | NUR ---
PT GOT OUT OF BED AND SAT IN CHAIR. I INFORMED PT THAT HE WAS INSTRUCTED TO STAY IN BED. CHARGE NURSE INFORMED OF SITUATION.
--- NOTE | 2022-10-20 22:34 | NUR ---
Medication reconciliation completed with information provided by []. Any prior medication reconciliation on file was reviewed and corrected.ER at bedside examining patient.
--- NOTE | 2022-10-20 22:35 | NUR ---
PT INFORMED DR LOW HE WANTED TO LEAVE AMA. HE STATED HE UNDERSTOOD RISK OF LEAVING AGAINST MEDICAL ADVICE.
[2022-10-20 22:40] LABS: BASOPHILS # (AUTO) 0.1 K/uL (0.0-0.2); BASOPHILS % (AUTO) 0.6 % (0.0-2.0); EOSINOPHILS # (AUTO) 0.2 K/uL (0.0-0.4); EOSINOPHILS % (AUTO) 1.9 % (0.0-4.0); HEMATOCRIT 49.2 % (36-54); HEMOGLOBIN 16.2 g/dL (14.0-18.0); LYMPHOCYTES # (AUTO) 2.6 K/uL (1.0-5.5); MEAN CORPUSCULAR HEMOGLOBIN 31 pg (27-31); MEAN CORPUSCULAR HGB CONC 33 % (32-36); MEAN CORPUSCULAR VOLUME 94 fL (79.0-98.0); MONOCYTES # (AUTO) 0.9 K/uL (0.0-1.0); MONOCYTES % (AUTO) 10.4 % (1.7-9.3); NEUTROPHILS # (AUTO) 4.8 K/uL (1.8-7.7); NEUTROPHILS % (AUTO) 56.1 % (40.0-70.0); PLATELET COUNT (AUTO) 207 K/uL (130-430); RED BLOOD CELL COUNT(AUTO) 5.24 MIL/uL (4.2-6.2); RED CELL DISTRIBUTION WIDTH 13.6 % (9.0-15.0); WHITE BLOOD COUNT (AUTO) 8.5 K/uL (4.8-10.8)
--- NOTE | 2022-10-20 22:42 | NUR ---
PT SIGNED OUT AMA. IV DISCONTINUED.
--- NOTE | 2022-10-20 22:46 | NUR ---
Patient does not wish to proceed with medical care recommended by DEVANTE. Patient given information related to possible complications, up to and including , which could occur as a result of leaving hospital at this time. Patient verbalizes understanding of risks involved leaving against medical advice. Patient has signed AMA form.
[2022-10-20 22:58] LABS: ALBUMIN 3.6 g/dL (3.4-4.8); CALCIUM 9.2 mg/dL (8.4-11.0); CREATININE 1.16 mg/dL (0.55-1.30); TOTAL BILIRUBIN 0.4 mg/dL (0.0-1.0)
== END 2022-10-20 22:46 | disposition left against medical advice (07) ==
LOC: SED 21:50
DX: R10.13 Epigastric pain (principal); R11.2 Nausea with vomiting, unspecified; I10 Essential (primary) hypertension; Z79.899 Other long term (current) drug therapy
CPT/HCPCS: 99284; 96374; 96375; 80053; 83690; 85025; 36415; J1885; J2405

== ENCOUNTER 2023-03-09 15:09 | Emergency (ER) | payer OTHER ==
[~2023-03-09] VITALS: Ht 175.3 cm; Wt 83.9 kg
[~2023-03-09 15:09] MED LIST changes: +LOSA-413 PO; -LOSA50TA3 PO
[2023-03-09 15:20] VITALS: BP_SYST 95; PULSE 84; RESP 20; TEMP 97.9; O2SAT 98
[2023-03-09] MEDS ORDERED: NACL 0.9% 2,000 ML IV ONE (18:00)
[2023-03-09] MEDS ORDERED: MORPHINE 4 MG INJ. 4 MG/ML VIAL IVP ONE (18:00)
[2023-03-09] MEDS ORDERED: ONDANSETRON HCL 4 MG/2 ML VIAL IVP ONE (18:00)
[2023-03-09 19:23] LABS: BASOPHILS % (AUTO) 0.3 % (0.0-2.0); EOSINOPHILS % (AUTO) 0.3 % (0.0-4.0); HEMATOCRIT 38.2 % (36-54); HEMOGLOBIN 12.6 g/dL (14.0-18.0); LYMPHOCYTES # (AUTO) 1.3 K/uL (1.0-5.5); LYMPHOCYTES % (AUTO) 10.4 % (20.5-51.5); MEAN CORPUSCULAR HEMOGLOBIN 31 pg (27-31); MEAN CORPUSCULAR HGB CONC 33 % (32-36); MEAN CORPUSCULAR VOLUME 94 fL (79.0-98.0); MONOCYTES # (AUTO) 0.9 K/uL (0.0-1.0); MONOCYTES % (AUTO) 6.8 % (1.7-9.3); NEUTROPHILS # (AUTO) 10.6 K/uL (1.8-7.7); NEUTROPHILS % (AUTO) 82.2 % (40.0-70.0); PLATELET COUNT (AUTO) 138 K/uL (130-430); RED BLOOD CELL COUNT(AUTO) 4.08 MIL/uL (4.2-6.2); RED CELL DISTRIBUTION WIDTH 14.1 % (9.0-15.0); WHITE BLOOD COUNT (AUTO) 12.9 K/uL (4.8-10.8)
[2023-03-09 19:35] LABS: CALCIUM 7.8 mg/dL (8.4-11.0); CREATININE 1.15 mg/dL (0.55-1.30)
[2023-03-09 19:37] LABS: INR 1.4 (0.80-1.20); PROTHROMBIN TIME 13.9 SECS (9.5-12.5)
[2023-03-09 19:45] LABS: POTASSIUM 2.8 mmol/L (3.5-5.1)
[2023-03-09] MEDS ORDERED: KCL 40 mEq in 100 mL (PREMIX) 100 ML IV ONE (20:00)
[2023-03-09] MEDS ORDERED: fentaNYL CITRATE/PF 100 MCG/2 ML AMP IVP ONE ×2 (20:00→21:45)
[2023-03-09] MEDS ORDERED: KCL 20 mEq in 100 mL (PREMIX) 200 ML IV ONE (20:12)
[2023-03-09] MEDS ORDERED: POTASSIUM CHLORIDE 20 MEQ/PKT PACKET PO ONE (22:45)
[2023-03-09] MEDS ORDERED: HYDROcodone/ACETAMIN 5-325 MG TAB (NORCO/ VICODIN) PO ONE (23:45)
[2023-03-10] MEDS ORDERED: LORazepam 1 MG TABLET PO ONE (01:45)
[2023-03-10] MEDS ORDERED: MORPHINE 4 MG INJ. 4 MG/ML VIAL IVP ONE (03:30)
[2023-03-10 03:57] LABS: CANNABINOID, URINE POSITIVE (NEG <=50); URINE AMPHETAMINE POSITIVE (NEG <=500)
[2023-03-10 03:58] LABS: BARBITURATE, URINE NEGATIVE (NEG <=200); BENZODIAZEPINE, URINE NEGATIVE (NEG <=150); COCAINE, URINE NEGATIVE (NEG <=150); METHAMPHETAMINES SCREEN,URINE POSITIVE (NEG <=500); OPIATE, URINE POSITIVE (NEG <=100); PHENCYCLIDINE SCREEN,URINE NEGATIVE (NEG <=25); URINE METHADONE NEGATIVE (NEG <=200); URINE OXYCODONE SCREEN NEGATIVE (NEG <=100)
[2023-03-10 03:59] LABS: UR TRICYCLIC ANTIDEPRESSANTS NEGATIVE (NEG <=300)
[2023-03-10 04:52] VITALS: BP_SYST 132; PULSE 89; RESP 17; TEMP 98.4; O2SAT 100
== END 2023-03-10 04:50 | disposition admitted as inpatient to this hospital (09) ==
LOC: SED 15:09
DX: S50.811A Abrasion of right forearm, initial encounter (principal); S80.211A Abrasion, right knee, initial encounter; S90.511A Abrasion, right ankle, initial encounter; S80.212A Abrasion, left knee, initial encounter; S80.812A Abrasion, left lower leg, initial encounter; F10.129 Alcohol abuse with intoxication, unspecified; R45.6 Violent behavior; I10 Essential (primary) hypertension; E87.6 Hypokalemia; Z88.5 Allergy status to narcotic agent; Z79.899 Other long term (current) drug therapy; V89.2XXA Person injured in unspecified motor-vehicle accident, traffic, initial encounter; Y93.89 Activity, other specified; Y92.89 Other specified places as the place of occurrence of the external cause; Y99.8 Other external cause status
CPT/HCPCS: 99291; 70450; 96365; 96366; 96375; 96361; 80307; 80048; 82962; 85025; 85610; 85730; 86886; 86900; 86901; 84484; 36415; 93005; 73090; 71250; 72125; 72131; 73700; 74177; 96376 ×2; 99292; 74176; 76376; J2405; J3480; J3010; J2270 ×2; J7030; G0482

== ENCOUNTER 2023-07-10 16:53 | Emergency (ER) | payer OTHER ==
[~2023-07-10] VITALS: Ht 175.3 cm; Wt 83.9 kg
[2023-07-10 17:24] VITALS: BP_SYST 138; PULSE 64; RESP 18; TEMP 97.8; O2SAT 97
[2023-07-10 17:53] LABS: BILIRUBIN,URINE NEGATIVE (NEGATIVE); BLOOD, URINE NEGATIVE (NEGATIVE); CLARITY/URINE CLEAR (CLEAR); COLOR,URINE YELLOW (YELLOW); GLUCOSE,URINE 3+ (NEGATIVE); KETONES,URINE NEGATIVE (NEGATIVE); LEUKOCYTE ESTERASE ,URINE NEGATIVE (NEGATIVE); NITRITE, URINE NEGATIVE (NEGATIVE); PROTEIN URINE NEGATIVE (NEGATIVE)
[2023-07-10 18:16] LABS: BASOPHILS # (AUTO) 0.1 K/uL (0.0-0.2); BASOPHILS % (AUTO) 0.8 % (0.0-2.0); EOSINOPHILS # (AUTO) 0.2 K/uL (0.0-0.4); EOSINOPHILS % (AUTO) 1.9 % (0.0-4.0); HEMATOCRIT 43.2 % (36-54); HEMOGLOBIN 14.7 g/dL (14.0-18.0); LYMPHOCYTES # (AUTO) 3.3 K/uL (1.0-5.5); LYMPHOCYTES % (AUTO) 40.7 % (20.5-51.5); MEAN CORPUSCULAR HEMOGLOBIN 30 pg (27-31); MEAN CORPUSCULAR HGB CONC 34 % (32-36); MEAN CORPUSCULAR VOLUME 88 fL (79.0-98.0); MONOCYTES # (AUTO) 0.8 K/uL (0.0-1.0); MONOCYTES % (AUTO) 10.2 % (1.7-9.3); NEUTROPHILS # (AUTO) 3.7 K/uL (1.8-7.7); NEUTROPHILS % (AUTO) 46.4 % (40.0-70.0); PLATELET COUNT (AUTO) 154 K/uL (130-430); RED BLOOD CELL COUNT(AUTO) 4.92 MIL/uL (4.2-6.2); RED CELL DISTRIBUTION WIDTH 13.7 % (9.0-15.0); WHITE BLOOD COUNT (AUTO) 8.1 K/uL (4.8-10.8)
[2023-07-10 18:35] LABS: PROTHROMBIN TIME 10.1 SECS (9.5-12.5)
[2023-07-10 18:47] LABS: ANION GAP 9 (5-15); CALCIUM 8.2 mg/dL (8.4-11.0); CARBON DIOXIDE 23 mmol/L (23-29); CHLORIDE 106 mmol/L (98-107); CREATINE KINASE, TOTAL 105 U/L (39-308); CREATININE 0.97 mg/dL (0.55-1.30); GFR AFRICAN AMERICAN 107 mL/min (>90); GLUCOSE 213 mg/dL (74-106); POTASSIUM 3.9 mmol/L (3.5-5.1); SODIUM SERUM 138 mmol/L (136-145); UREA NITROGEN, BLOOD 26 mg/dL (8-21)
[2023-07-10] MEDS ORDERED: HYDR-3917 PO (18:47)
[2023-07-10 18:51] LABS: GFR NON AFRICAN-AMERICAN 88 mL/min (>90)
[2023-07-10 19:07] VITALS: BP_SYST 138; PULSE 64; RESP 18; TEMP 97.8; O2SAT 97
[2023-07-10 19:08] LABS: ACETONE, SERUM NEGATIVE (NEGATIVE)
[2023-07-10 19:11] LABS: BACTERIA,URINE RARE /HPF (None Seen); MUCUS,URINE None Seen /LPF (None Seen); RBC,URINE NONE SEEN /HPF (0-3); WBC,URINE 0-3 /HPF (0-3)
== END 2023-07-10 19:07 | disposition home or self-care (01) ==
LOC: SED 16:53
DX: G62.9 Polyneuropathy, unspecified (principal); E11.65 Type 2 diabetes mellitus with hyperglycemia; R73.9 Hyperglycemia, unspecified; R53.1 Weakness; H53.8 Other visual disturbances; I10 Essential (primary) hypertension; Z88.5 Allergy status to narcotic agent; Z79.899 Other long term (current) drug therapy
CPT/HCPCS: 36415; 80048; 81000; 81001; 81015; 82009; 82550; 82948; 83605; 85025; 85610; 85730; 93005; 99284